=== PATIENT | male | born 1970 | race Caucasian/White ===

== ENCOUNTER 2016-06-03 21:13 | Emergency (ER) | payer MEDICAID | END 2016-06-03 22:33 | disposition home or self-care (01) | DX: S20.212A Contusion of left front wall of thorax, initial encounter (principal); W19.XXXA Unspecified fall, initial encounter; E11.9 Type 2 diabetes mellitus without complications; F17.200 Nicotine dependence, unspecified, uncomplicated; Z79.4 Long term (current) use of insulin ==

== ENCOUNTER 2016-08-06 14:25 | Emergency (ER) | payer MEDICAID ==
[2016-08-06] MEDS ORDERED: LIDOCAINE 1%-EPI 1:100000 20 ML MDV ONE (15:52)
== END 2016-08-06 16:16 | disposition home or self-care (01) ==
DX: L72.3 Sebaceous cyst (principal); E11.9 Type 2 diabetes mellitus without complications; Z79.4 Long term (current) use of insulin; F17.200 Nicotine dependence, unspecified, uncomplicated

== ENCOUNTER 2016-08-10 09:36 | Emergency (ER) | payer MEDICAID | END 2016-08-10 11:44 | disposition home or self-care (01) | DX: N49.2 Inflammatory disorders of scrotum (principal); R03.0 Elevated blood-pressure reading, without diagnosis of hypertension; E11.9 Type 2 diabetes mellitus without complications; Z79.4 Long term (current) use of insulin; F17.200 Nicotine dependence, unspecified, uncomplicated ==

== ENCOUNTER 2016-08-12 16:39 | Emergency (ER) | payer MEDICAID | END 2016-08-12 16:49 | disposition home or self-care (01) | DX: N49.2 Inflammatory disorders of scrotum (principal); F17.200 Nicotine dependence, unspecified, uncomplicated; E11.9 Type 2 diabetes mellitus without complications; Z79.4 Long term (current) use of insulin ==

== ENCOUNTER 2017-03-07 21:45 | Emergency (ER) | payer MEDICAID ==
[2017-03-07 21:57] VITALS: BP 131/91
[2017-03-07] MEDS ORDERED: SODIUM CHLORIDE 0.9% 1,000 ML IV ONE ×2 (22:25→22:59)
[2017-03-07 22:41] LABS: BASOPHILS # (AUTO) 0.1 10^3/uL (0.0-0.1); BASOPHILS % (AUTO) 0.8 %; EOSINOPHILS # (AUTO) 0.1 10^3/uL (0.0-0.7); EOSINOPHILS % (AUTO) 1.5 %; HCT - HEMATOCRIT 39.7 % (42.0-52.0); HGB - HEMOGLOBIN 13.6 g/dL (14.0-18.0); LYMPHOCYTES # (AUTO) 1.6 10^3/uL (1.5-3.5); LYMPHOCYTES % (AUTO) 22.3 %; MEAN CORPUSCULAR HGB CONC 34.3 g/dL (32.0-36.0); MEAN CORPUSCULAR VOLUME 93.4 fL (80.0-94.0); MEAN PLATELET VOLUME 7.4 fL (7.4-11.4); MONOCYTES # (AUTO) 0.7 10^3/uL (0.0-1.0); NEUTROPHILS # (AUTO) 4.9 10^3/uL (1.5-6.6); NEUTROPHILS % (AUTO) 66.4 %; RED BLOOD COUNT 4.26 10^6/uL (4.70-6.10); RED CELL DISTRIBUTION WIDTH 12.1 % (12.0-15.0); UNCORRECTED WHITE BLOOD COUNT 7.4 x10^3/uL; WHITE BLOOD COUNT 7.4 x10^3/uL (4.8-10.8)
[2017-03-07 22:42] LABS: VBG BASE EXCESS 1.5 mmol/L (-2 - +2); VBG OXYGEN SATURATION 93.3 % (60-80); VBG PH 7.417 (7.31-7.41); VBG TOTAL CO2 27.4 mmol/L (24-29)
[2017-03-07 22:56] LABS: ALBUMIN/GLOBULIN RATIO 0.9 (1.0-2.2); BILIRUBIN,TOTAL 0.5 mg/dL (0.2-1.0); BUN - BLOOD UREA NITROGEN 23 mg/dL (6-20); CALCIUM 8.9 mg/dL (8.5-10.3); CARBON DIOXIDE - CO2 24 mmol/L (21-32); CHLORIDE 90 mmol/L (101-111); CREATININE 0.8 mg/dL (0.6-1.2); GFR - MDRD 105 (>89); LIPASE 106 U/L (22-51); POTASSIUM 3.7 mmol/L (3.5-5.0); SODIUM 126 mmol/L (135-145); TOTAL PROTEIN 7.1 g/dL (6.7-8.2)
[2017-03-07 22:57] LABS: GLUCOSE 604 mg/dL (70-100)
[2017-03-07] MEDS ORDERED: INSULIN REGULAR HUMAN 100 UNIT/1 ML 10 ML MDV IVP STA (22:58)
[2017-03-07] MEDS ORDERED: INSULIN REGULAR HUMAN 100 UNIT/1 ML 10 ML MDV ONE (23:12)
[2017-03-07 23:25] LABS: BILIRUBIN,URINE NEGATIVE (NEGATIVE)
[2017-03-07 23:27] LABS: UA CHARGE (STRIP ONLY) YES; UR CULTURE IF IND NOT INDICATED
--- NOTE | 2017-03-07 23:39 | Ultrasound Preliminary Report ---
Exam: US TESTICLE IMPRESSION: 1. No intrascrotal abnormality. 2. Heterogeneous vascular left scrotal wall mass concerning for neoplasm or active inflammation. [facility] SITE ID: [id number]
--- NOTE | 2017-03-07 23:42 | Ultrasound Report ---
EXAM: SCROTAL ULTRASOUND EXAM DATE: 03/07/2017 11:24 PM. CLINICAL HISTORY: Scrotal mass. COMPARISON: None. TECHNIQUE: Real-time scanning was performed with static images obtained. Both color-flow and Doppler spectral analysis were utilized. FINDINGS: Right: Testis: 3.3 x 1.5 x 1.9 cm. Normal size and echotexture. No mass, calcification, or abnormal blood fl ow. Epididymis: 0.8 x 1.1 x 1.3 cm. Normal size and echotexture. No mass or abnormal blood flow. Hydrocele: None. Varicocele: None. Left: Testis: 3.8 x 1.9 x 1.8 cm. Normal size and echotexture. No mass, calcification, or abnormal blood fl ow. Epididymis: 0.5 x 0.7 cm. Normal size and echotexture. No mass or abnormal blood flow. Hydrocele: None. Varicocele: None. Left anterior scrotal wall heterogeneous abnormality with increased vascularity and internal cystic a reas, measuring 4.5 x 1.5 x 2.7 cm overall. IMPRESSION: 1. No intrascrotal abnormality. 2. Heterogeneous vascular left scrotal wall mass concerning for neoplasm or active inflammation. [facility] Referring Provider Line: [phone] SITE ID: [id number]
--- NOTE | 2017-03-07 23:57 | ED Physician Documentation ---
PD HPI SKIN - Stated complaint Stated Complaint: MALE - Chief complaint Chief Complaint: Wound - History obtained from History obtained from: Patient - History of Present Illness Timing - onset: Yesterday Timing - details: Gradual onset, Still present Location: Genitals Quality / character: Painful, Raised, Swelling Similar symptoms before: Work up / diagnostics, Treatment Recently seen: Not recently seen - Additional information Additional information: Patient is a 46 year old male with a history of diabetes and deni scrotal abscesses who is presenting to the emergency department for scrotal swelling. Patient states that he noticed it in the shower over the last couple or days and has become progressively worse. Review of Systems Constitutional: denies: Fever, Chills Eyes: reports: Reviewed and negative Ears: reports: Reviewed and negative Nose: reports: Reviewed and negative Throat: reports: Reviewed and negative Cardiac: denies: Chest pain / pressure Respiratory: reports: Reviewed and negative GI: denies: Abdominal Pain, Nausea, Vomiting : reports: Frequency, Other (scrotal mass). denies: Dysuria Skin: reports: Lesions Musculoskeletal: reports: Reviewed and negative Neurologic: denies: Generalized weakness, Focal weakness, Numbness Endocrine: reports: Polydypsia, Polyuria PD PAST MEDICAL HISTORY - Past Medical History Cardiovascular: None Respiratory: None Neuro: None Endocrine/Autoimmune: Type 2 diabetes GI: Other : None HEENT: Other Psych: None Musculoskeletal: None Derm: None - Past Surgical History Past Surgical History: Yes General: Cholecystectomy - Present Medications Home Medications: Ambulatory Orders Medication Instructions Recorded Confirmed Insulin Glargine [Lantus Solostar] 10 units SUBQ DAILY 06/26/15 03/07/17 Insulin NPH Hum/Reg Insulin Hm 15 unit SUBQ AC 06/26/15 03/07/17 [Novolin 70-30 100 Unit/ml Vial] Cephalexin [Keflex] 500 mg PO Q6H 7 Days capsule 03/07/17 - Allergies Allergies/Adverse Reactions: Allergies Allergy/AdvReac Type Severity Reaction Status Date / Time No Known Drug Allergies Allergy Verified 03/07/17 21:57 - Social History Does the pt smoke?: Yes Smoking Status: Current every day smoker Does the pt drink ETOH?: No Does the pt have substance abuse?: No - Immunizations Immunizations are current?: Yes - POLST Patient has POLST: No PD ED PE NORMAL - Vitals Vital signs reviewed: Yes - General General: Alert and oriented X 3, No acute distress - HEENT HEENT: Atraumatic, PERRL - Neck Neck: Supple, no meningeal sign - Cardiac Cardiac: RRR, No murmur - Respiratory Respiratory: No respiratory distress - Abdomen Abdomen: Soft, Non tender, Non distended - Extremities Extremities: No deformity - Neuro Neuro: Alert and oriented X 3, No motor deficit, No sensory deficit, Normal speech PD ED PE EXPANDED - HEENT HEENT: Dry mucous membranes - Male Male : Skin lesions (lesion consistent with abscess on left scrotum) - Derm Derm: Rash (erythematous indurated lesion approx 2cm by 2cm) Results - Vitals Vitals: Vital Signs - 24 hr 03/07/17 21:55 Temperature 36.2 C L Heart Rate 102 H Respiratory 20 Rate Blood Pressure 131/91 H O2 Saturation 98 Oxygen O2 Source Room air - Labs Labs: Laboratory Tests 03/07/17 03/07/17 03/07/17 22:34 22:34 22:34 WBC 7.4 RBC 4.26 L Hgb 13.6 L Hct 39.7 L MCV 93.4 MCH 32.0 H MCHC 34.3 RDW 12.1 Plt Count 150 MPV 7.4 Neut # 4.9 Lymph # 1.6 [place] # 0.7 Eos # 0.1 Baso # 0.1 Absolute Nucleated RBC 0.00 Nucleated RBC % 0.0 VBG pH VBG pCO2 VBG pO2 VBG HCO3 VBG Total CO2 VBG O2 Saturation VBG Base Excess Sodium 126 L Potassium 3.7 Chloride 90 L Carbon Dioxide 24 Anion Gap 12.0 BUN 23 H Creatinine 0.8 Estimated GFR (MDRD) 105 Glucose 604 H* POC Whole Bld Glucose Lactic Acid 0.9 Calcium 8.9 Total Bilirubin 0.5 AST 20 ALT 37 Alkaline Phosphatase 93 Total Protein 7.1 Albumin 3.4 Globulin 3.7 Albumin/Globulin Ratio 0.9 L Lipase 106 H Urine Color Urine Clarity Urine pH Ur Specific [place] Urine Protein Urine Glucose (UA) Urine Ketones Urine Occult Blood Urine Nitrite Urine Bilirubin Urine Urobilinogen Ur Leukocyte Esterase Ur Microscopic Review Urine Culture Comments Serum Ketones NEGATIVE 03/07/17 03/07/17 03/07/17 22:34 23:15 23:54 WBC RBC Hgb Hct MCV MCH MCHC RDW Plt Count MPV Neut # Lymph # [place] # Eos # Baso # Absolute Nucleated RBC Nucleated RBC % VBG pH 7.417 H VBG pCO2 41.5 VBG pO2 62.2 H VBG HCO3 26.1 VBG Total CO2 27.4 VBG O2 Saturation 93.3 H VBG Base Excess 1.5 Sodium Potassium Chloride Carbon Dioxide Anion Gap BUN Creatinine Estimated GFR (MDRD) Glucose POC Whole Bld Glucose 540 H* Lactic Acid Calcium Total Bilirubin AST ALT Alkaline Phosphatase Total Protein Albumin Globulin Albumin/Globulin Ratio Lipase Urine Color YELLOW Urine Clarity CLEAR Urine pH 6.0 Ur Specific [place] <=1.005 Urine Protein NEGATIVE Urine Glucose (UA) >=1000 H Urine Ketones NEGATIVE Urine Occult Blood NEGATIVE Urine Nitrite NEGATIVE Urine Bilirubin NEGATIVE Urine Urobilinogen 0.2 (NORMAL) Ur Leukocyte Esterase NEGATIVE Ur Microscopic Review NOT INDICATED Urine Culture Comments NOT INDICATED Serum Ketones PD MEDICAL DECISION MAKING - ED course Complexity details: reviewed old records, reviewed results, re-evaluated patient , considered differential, d/w patient ED course: Patient was seen and examined at bedside. fingerstick was performed and was found to be "high". IV access was gained and labs were drawn. Patient was started on a fluid bolus. ultrasound was ordered. Patient was treated with insulin IV. Patient's labs showed no signs of dka, but blood glucose was still very elevated. Patient stated that he drank a monster and ate some junk food before coming in. He stated he would eat something and take his insulin at home but he wanted to leave. patient was made aware of the risks of leaving. Patient stated ht understood and he signed out against medical advice. Departure - Departure Disposition: 07 Against Medical Advice Clinical Impression: Scrotal abscess, Uncontrolled diabetes mellitus Condition: Stable Instructions: ED Staph Infec Abx Tx Only Follow-Up: primary,care provider [Other] Prescriptions: Cephalexin [Keflex] 500 mg PO Q6H 7 Days capsule Comments: Your symptoms today are being caused by a scrotal abscess. You will need to apply warm compresses and start antibiotics. I understand you need to get home today, but your blood sugars are very out of control. You should follow up with your pmd or return to the emergency department if there is no improvement with your symptoms. Discharge Date/Time: 03/08/17 00:07
== END 2017-03-08 00:07 | disposition left against medical advice (07) ==
LOC: ED 21:45
DX: N49.2 Inflammatory disorders of scrotum (principal); E11.9 Type 2 diabetes mellitus without complications; Z79.4 Long term (current) use of insulin; F17.200 Nicotine dependence, unspecified, uncomplicated
CPT/HCPCS: 36415; 76870; 80053; 81003; 82009; 82803; 83605; 83690; 85025; 96360; 99283; 99284; J1815; 81001; 87086

== ENCOUNTER 2017-09-06 08:00 | Outpatient (CLI) | payer MEDICAID ==
[2017-09-06 13:32] LABS: BASOPHILS # (AUTO) 0.1 10^3/uL (0.0-0.1); BASOPHILS % (AUTO) 0.8 %; EOSINOPHILS # (AUTO) 0.3 10^3/uL (0.0-0.7); EOSINOPHILS % (AUTO) 4.4 %; HGB - HEMOGLOBIN 13.1 g/dL (14.0-18.0); LYMPHOCYTES # (AUTO) 1.7 10^3/uL (1.5-3.5); LYMPHOCYTES % (AUTO) 27.8 %; MEAN CORPUSCULAR HEMOGLOBIN 32.3 pg (27.0-31.0); MEAN CORPUSCULAR HGB CONC 34.5 g/dL (32.0-36.0); MEAN CORPUSCULAR VOLUME 93.5 fL (80.0-94.0); MEAN PLATELET VOLUME 7.1 fL (7.4-11.4); MONOCYTES # (AUTO) 0.5 10^3/uL (0.0-1.0); MONOCYTES % (AUTO) 8.3 %; NEUTROPHILS # (AUTO) 3.7 10^3/uL (1.5-6.6); NEUTROPHILS % (AUTO) 58.7 %; PLT - PLATELET COUNT 169 10^3/uL (130-450); RED BLOOD COUNT 4.07 10^6/uL (4.70-6.10); RED CELL DISTRIBUTION WIDTH 12.8 % (12.0-15.0); WHITE BLOOD COUNT 6.3 x10^3/uL (4.8-10.8)
[2017-09-06 13:58] LABS: ALBUMIN 3.5 g/dL (3.2-5.5); ALBUMIN/GLOBULIN RATIO 0.8 (1.0-2.2); ALKALINE PHOSPHATASE 85 IU/L (42-121); ALT ALANINE AMINOTRANSFERASE 50 IU/L (10-60); AST ASPARTATE AMINOTRANSFERASE 25 IU/L (10-42); BILIRUBIN,TOTAL 0.6 mg/dL (0.2-1.0); BUN - BLOOD UREA NITROGEN 29 mg/dL (6-20); CARBON DIOXIDE - CO2 25 mmol/L (21-32); CHLORIDE 95 mmol/L (101-111); CHOLESTEROL 236 mg/dL; CREATININE 0.7 mg/dL (0.6-1.2); GFR - MDRD 122 (>89); GLUCOSE 350 mg/dL (70-100); HDL CHOLESTEROL 79 mg/dL; LDL CHOLESTEROL,CALCULATED 145 mg/dL; LDL/HDL RATIO 1.8 (<3.6); SODIUM 129 mmol/L (135-145); TOTAL PROTEIN 7.9 g/dL (6.7-8.2); VLDL CHOLESTEROL 12 mg/dL
[2017-09-06 13:59] LABS: HB2 TOTAL 14.6 g/dL; HEMOGLOBIN A1C 2.1 g/dL; HEMOGLOBIN A1C % 15.3 % (4.6-6.2)
== END 2017-09-06 08:01 ==
LOC: LAB.N 08:00
PROVIDERS: ATTEND Physician Assistant Medical
DX: Z00.00 Encounter for general adult medical examination without abnormal findings (principal); F17.200 Nicotine dependence, unspecified, uncomplicated; Z86.718 Personal history of other venous thrombosis and embolism; E11.65 Type 2 diabetes mellitus with hyperglycemia
CPT/HCPCS: 36415; 80053; 80061; 82043; 83036; 83721; 84443; 85025

== ENCOUNTER 2017-11-14 16:48 | Emergency (ER) | payer MEDICAID ==
[2017-11-14] MEDS ORDERED: SODIUM CHLORIDE 0.9% 1,000 ML IV ONE ×2 (17:22→17:23)
[2017-11-14 17:44] LABS: BASOPHILS % (AUTO) 0.4 %; EOSINOPHILS % (AUTO) 0.5 %; HGB - HEMOGLOBIN 12.8 g/dL (14.0-18.0); LYMPHOCYTES # (AUTO) 0.8 10^3/uL (1.5-3.5); LYMPHOCYTES % (AUTO) 9.3 %; MEAN CORPUSCULAR HEMOGLOBIN 32.2 pg (27.0-31.0); MEAN CORPUSCULAR HGB CONC 34.6 g/dL (32.0-36.0); MEAN PLATELET VOLUME 6.8 fL (7.4-11.4); MONOCYTES # (AUTO) 0.7 10^3/uL (0.0-1.0); MONOCYTES % (AUTO) 7.9 %; NEUTROPHILS # (AUTO) 7.4 10^3/uL (1.5-6.6); NEUTROPHILS % (AUTO) 81.9 %; PLT - PLATELET COUNT 157 10^3/uL (130-450); RED BLOOD COUNT 3.97 10^6/uL (4.70-6.10); RED CELL DISTRIBUTION WIDTH 12.7 % (12.0-15.0)
--- NOTE | 2017-11-14 17:45 | ED Physician Documentation ---
History of Present Illness - Stated complaint Stated Complaint: MASS ON NECK/HD PX - Chief complaint Chief Complaint: General - History obtained from History obtained from: Patient - History of Present Illness Timing: Other (46-year-old type II diabetic whose had a painful lesion on the left side of the neck for last 4 days it started out like a pimple but has gotten larger. He denies any fevers or chills.) Pain level max: 6 Review of Systems Ten Systems: 10 systems reviewed and negative Constitutional: denies: Fever, Chills Cardiac: denies: Chest pain / pressure, Palpitations Respiratory: denies: Dyspnea, Cough PD PAST MEDICAL HISTORY - Past Medical History Cardiovascular: None Respiratory: None Endocrine/Autoimmune: Type 2 diabetes GI: Other : None HEENT: Other Psych: None Musculoskeletal: None Derm: None - Past Surgical History Past Surgical History: Yes General: Cholecystectomy - Present Medications Home Medications: Ambulatory Orders Medication Instructions Recorded Confirmed Insulin Glargine [Lantus Solostar] 10 units SUBQ DAILY 06/26/15 03/07/17 Insulin NPH Hum/Reg Insulin Hm 15 unit SUBQ AC 06/26/15 03/07/17 [Novolin 70-30 100 Unit/ml Vial] Cephalexin [Keflex] 500 mg PO QID #40 capsule 11/14/17 Oxycodone HCl/Acetaminophen 1 - 2 tab PO Q4H PRN #10 tablet 11/14/17 [Percocet 5-325 mg Tablet] Sulfamethoxazole/Trimethoprim 1 each PO BID 10 Days tablet 11/14/17 [Sulfamethoxazole-Tmp Ds Tablet] metFORMIN [Glucophage] 1,000 mg PO BID 11/14/17 11/14/17 - Allergies Allergies/Adverse Reactions: Allergies Allergy/AdvReac Type Severity Reaction Status Date / Time No Known Drug Allergies Allergy Verified 11/14/17 17:00 - Social History Does the pt smoke?: Yes Smoking Status: Current every day smoker Does the pt drink ETOH?: No Does the pt have substance abuse?: No - Family History Family history: reports: Non contributory - Immunizations Immunizations are current?: Yes - POLST Patient has POLST: No PD ED PE NORMAL - Vitals Vital signs reviewed: Yes - General General: Alert and oriented X 3, No acute distress - HEENT HEENT: PERRL, EOMI - Neck Neck: Supple, no meningeal sign, No bony TTP - Cardiac Cardiac: RRR, No murmur - Respiratory Respiratory: No respiratory distress, Clear bilaterally - Abdomen Abdomen: Non tender - Derm Derm: Other (There is a broad shallow abscess with overlying eschar that is about nickel sized to the left mid posterior neck.) - Neuro Neuro: Alert and oriented X 3, Normal speech - Psych Psych: Normal mood, Normal affect Results - Vitals Vitals: Vital Signs - 24 hr 11/14/17 11/14/17 16:56 17:30 Temperature 36.6 C Heart Rate 126 H 117 H Respiratory 16 Rate Blood Pressure 96/62 111/76 O2 Saturation 98 100 Oxygen O2 Source Room air - Labs Labs: Microbiology 11/14/17 17:50 Wound Culture - Preliminary Abscess Laboratory Tests 11/14/17 11/14/17 11/14/17 17:35 17:35 17:35 WBC 9.0 RBC 3.97 L Hgb 12.8 L Hct 36.9 L MCV 93.0 MCH 32.2 H MCHC 34.6 RDW 12.7 Plt Count 157 MPV 6.8 L Neut # (Auto) 7.4 H Lymph # (Auto) 0.8 L [place] # (Auto) 0.7 Eos # (Auto) 0.0 Baso # (Auto) 0.0 Absolute Nucleated RBC 0.01 Nucleated RBC % 0.1 Sodium 134 L Potassium 3.5 Chloride 96 L Carbon Dioxide 27 Anion Gap 11.0 BUN 17 Creatinine 0.8 Estimated GFR (MDRD) 105 Glucose 294 H Lactic Acid 2.4 H Calcium 9.5 Total Bilirubin 0.7 AST 21 ALT 20 Alkaline Phosphatase 82 Total Protein 7.6 Albumin 3.2 Globulin 4.4 H Albumin/Globulin Ratio 0.7 L Lipase 26 Procedures - Abscess I&D (location) L neck Preparation: Alcohol, Lidocaine 1%, With epi Incision: Incised with scalpel, Purulent drainage, Loculations broken, Culture obtained. No: Packed (too small) Other: Pt tolerated well, Dressing applied PD MEDICAL DECISION MAKING - ED course ED course: 46-year-old gentleman with diabetes presents with an abscess on the left side of the neck which was incised and drained. His labs are reassuring and he is placed on Keflex and Bactrim. - Sepsis Event Vital Signs: Vital Signs - 24 hr 11/14/17 11/14/17 16:56 17:30 Temperature 36.6 C Heart Rate 126 H 117 H Respiratory 16 Rate Blood Pressure 96/62 111/76 O2 Saturation 98 100 Oxygen O2 Source Room air Departure - Departure Disposition: Home, Self Care Clinical Impression: Neck abscess Condition: Good Record reviewed to determine appropriate education?: Yes Instructions: ED Abscess IandD Prescriptions: Cephalexin [Keflex] 500 mg PO QID #40 capsule Oxycodone HCl/Acetaminophen [Percocet 5-325 mg Tablet] 1 - 2 tab PO Q4H PRN #10 tablet PRN Reason: Pain Sulfamethoxazole/Trimethoprim [Sulfamethoxazole-Tmp Ds Tablet] 1 each PO BID 10 Days tablet Comments: We are performing a wound culture, the results should be done in 48-72 hours. If antibiotic change is necessary we will call you. Return if worse in the meantime, especially if you develop increased pain, fevers, cannot keep down the medication. Otherwise follow-up with your physician in approximately 2-3 days.
[2017-11-14 18:00] LABS: ALBUMIN 3.2 g/dL (3.2-5.5); ALBUMIN/GLOBULIN RATIO 0.7 (1.0-2.2); BILIRUBIN,TOTAL 0.7 mg/dL (0.2-1.0); CALCIUM 9.5 mg/dL (8.5-10.3); CREATININE 0.8 mg/dL (0.6-1.2); TOTAL PROTEIN 7.6 g/dL (6.7-8.2)
[2017-11-14] MEDS ORDERED: cephALEXin 250 MG CAPSULE PO STA (18:33)
[2017-11-14] MEDS ORDERED: SULFAMETH/TRIMETH DS 800/160 MG TABLET PO STA (18:33)
[2017-11-14] MEDS ORDERED: oxyCODONE/ACET 5/325 Prepack 4 PO STA (18:36)
[2017-11-14 18:49] VITALS: BP 142/100
== END 2017-11-14 18:50 | disposition home or self-care (01) ==
LOC: ED 16:48
DX: L02.11 Cutaneous abscess of neck (principal); E11.9 Type 2 diabetes mellitus without complications; Z79.4 Long term (current) use of insulin; F17.200 Nicotine dependence, unspecified, uncomplicated
CPT/HCPCS: 10060; 36415; 80053; 83605; 83690; 85025; 87070; 87181; 87205; 99283; A9270

== ENCOUNTER 2017-12-15 17:20 | Outpatient (CLI) | payer MEDICAID | END 2017-12-15 17:21 | disposition critical access hospital (66) | LOC: EMS 17:20 | PROVIDERS: ATTEND Surgery | DX: R41.82 Altered mental status, unspecified (principal); R53.83 Other fatigue; R73.09 Other abnormal glucose | CPT/HCPCS: A0425; A0427; A0999 ==

== ENCOUNTER 2017-12-15 17:53 | Emergency (ER) | payer MEDICAID ==
[2017-12-15 18:34] LABS: BASOPHILS # (AUTO) 0.1 10^3/uL (0.0-0.1); BASOPHILS % (AUTO) 1.5 %; EOSINOPHILS # (AUTO) 0.1 10^3/uL (0.0-0.7); EOSINOPHILS % (AUTO) 1.3 %; LYMPHOCYTES # (AUTO) 1.4 10^3/uL (1.5-3.5); LYMPHOCYTES % (AUTO) 29.4 %; MEAN CORPUSCULAR HEMOGLOBIN 32.2 pg (27.0-31.0); MEAN CORPUSCULAR HGB CONC 34.9 g/dL (32.0-36.0); MEAN CORPUSCULAR VOLUME 92.3 fL (80.0-94.0); MEAN PLATELET VOLUME 6.9 fL (7.4-11.4); MONOCYTES # (AUTO) 0.4 10^3/uL (0.0-1.0); MONOCYTES % (AUTO) 8.4 %; NEUTROPHILS # (AUTO) 2.8 10^3/uL (1.5-6.6); NEUTROPHILS % (AUTO) 59.4 %; PLT - PLATELET COUNT 141 10^3/uL (130-450); RED BLOOD COUNT 4.02 10^6/uL (4.70-6.10); RED CELL DISTRIBUTION WIDTH 12.9 % (12.0-15.0); WHITE BLOOD COUNT 4.7 x10^3/uL (4.8-10.8)
[2017-12-15 18:35] LABS: VBG BASE EXCESS 2.7 mmol/L (-2 - +2); VBG PCO2 50.2 mmHg (41-51); VBG PH 7.376 (7.31-7.41); VBG PO2 30.9 mmHg (25-47); VBG TOTAL CO2 30.3 mmol/L (24-29)
[2017-12-15 18:38] LABS: BUN - BLOOD UREA NITROGEN 22 mg/dL (6-20); CARBON DIOXIDE - CO2 27 mmol/L (21-32); CHLORIDE 98 mmol/L (101-111); CREATININE 0.6 mg/dL (0.6-1.2); GFR - MDRD 146 (>89); GLUCOSE 338 mg/dL (70-100); SODIUM 134 mmol/L (135-145)
[2017-12-15 18:42] LABS: KETONES, SERUM (ACETEST) SMALL (NEGATIVE)
[2017-12-15] MEDS ORDERED: SODIUM CHLORIDE 0.9% 1,000 ML IV ONE ×2 (19:50→20:25)
[2017-12-15] MEDS ORDERED: INSULIN REGULAR HUMAN 100 UNIT/1 ML 10 ML MDV IVP STA (19:50)
--- NOTE | 2017-12-15 20:43 | ED Physician Documentation ---
PD HPI NVD - Stated complaint Stated Complaint: HIGH BLOOD SUGAR - Chief complaint Chief Complaint: Abd Pain - History obtained from History obtained from: Patient, EMS - History of Present Illness Timing - onset: How many days ago (2-3 days he did not feel like taking his insulin nor check sugars. Feeling weak and nauseated today. Called EMS.) Timing - duration: Days Timing - details: Gradual onset, Still present Associated symptoms: Loss of appetite. No: Fever, Abdominal pain, Near syncope / syncope Contributing factors: Diabetes. No: Sick contact, Bad food Worsened by: Eating Similar symptoms before: Diagnosis (diabetes, ketosis) Recently seen: Not recently seen Review of Systems Constitutional: denies: Fever, Chills, Myalgias Nose: denies: Rhinorrhea / runny nose, Congestion Throat: denies: Sore throat Cardiac: denies: Chest pain / pressure Respiratory: denies: Cough GI: reports: Nausea, Vomiting. denies: Abdominal Pain, Diarrhea : reports: Frequency. denies: Dysuria Neurologic: reports: Generalized weakness. denies: Focal weakness, Numbness PD PAST MEDICAL HISTORY - Past Medical History Past Medical History: Yes Cardiovascular: None Respiratory: None Endocrine/Autoimmune: Type 2 diabetes GI: Other : None HEENT: Other Psych: None Musculoskeletal: None Derm: None - Past Surgical History Past Surgical History: Yes General: Cholecystectomy - Present Medications Home Medications: Ambulatory Orders Medication Instructions Recorded Confirmed Insulin Glargine [Lantus Solostar] 10 units SUBQ DAILY 06/26/15 03/07/17 Insulin NPH Hum/Reg Insulin Hm 15 unit SUBQ AC 06/26/15 03/07/17 [Novolin 70-30 100 Unit/ml Vial] Cephalexin [Keflex] 500 mg PO QID #40 capsule 11/14/17 Oxycodone HCl/Acetaminophen 1 - 2 tab PO Q4H PRN #10 tablet 11/14/17 [Percocet 5-325 mg Tablet] Sulfamethoxazole/Trimethoprim 1 each PO BID 10 Days tablet 11/14/17 [Sulfamethoxazole-Tmp Ds Tablet] metFORMIN [Glucophage] 1,000 mg PO BID 11/14/17 11/14/17 - Allergies Allergies/Adverse Reactions: Allergies Allergy/AdvReac Type Severity Reaction Status Date / Time No Known Drug Allergies Allergy Verified 12/15/17 18:12 - Social History Does the pt smoke?: Yes Smoking Status: Current every day smoker Does the pt drink ETOH?: No Does the pt have substance abuse?: No - Immunizations Immunizations are current?: Yes - POLST Patient has POLST: No PD ED PE NORMAL - Vitals Vital signs reviewed: Yes - General General: Alert and oriented X 3, No acute distress, Well developed/nourished - HEENT HEENT: Pharynx benign. No: Moist mucous membranes - Neck Neck: Supple, no meningeal sign, No adenopathy - Cardiac Cardiac: RRR, No murmur - Respiratory Respiratory: Clear bilaterally - Abdomen Abdomen: Normal bowel sounds, Soft, Non tender, Non distended - Back Back: No CVA TTP - Derm Derm: Normal color, Warm and dry - Extremities Extremities: No deformity, No tenderness to palpate, Normal ROM s pain, No edema , No calf tenderness / cord - Neuro Neuro: Alert and oriented X 3, No motor deficit, Normal speech Eye Opening: Spontaneous Motor: Obeys Commands Verbal: Oriented GCS Score: 15 Results - Vitals Vitals: Oxygen O2 Source Room air - Labs Labs: Laboratory Tests 12/15/17 12/15/17 12/15/17 18:27 18:27 18:27 WBC 4.7 L RBC 4.02 L Hgb 13.0 L Hct 37.1 L MCV 92.3 MCH 32.2 H MCHC 34.9 RDW 12.9 Plt Count 141 MPV 6.9 L Neut # (Auto) 2.8 Lymph # (Auto) 1.4 L [place] # (Auto) 0.4 Eos # (Auto) 0.1 Baso # (Auto) 0.1 Absolute Nucleated RBC 0.00 Nucleated RBC % 0.0 VBG pH 7.376 VBG pCO2 50.2 VBG pO2 30.9 VBG HCO3 28.8 H VBG Total CO2 30.3 H VBG O2 Saturation 61.3 VBG Base Excess 2.7 H Sodium 134 L Potassium 3.8 Chloride 98 L Carbon Dioxide 27 Anion Gap 9.0 BUN 22 H Creatinine 0.6 Estimated GFR (MDRD) 146 Glucose 338 H Calcium 9.0 Serum Ketones SMALL H PD MEDICAL DECISION MAKING - ED course Complexity details: reviewed results, re-evaluated patient (he is feeling better with IV fluids and meds. Taking water and eating well. He feels wanting to go home. Ride is here. He says he will take his normal meds. 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 Resume your usual insulin doses that you should be taking. Recheck if not improved over the next few days. Discharge Date/Time: 12/15/17 20:52
[2017-12-15 20:52] VITALS: BP 117/67
== END 2017-12-15 20:52 | disposition home or self-care (01) ==
LOC: EDUNIT# → ED 17:53
DX: E11.10 Type 2 diabetes mellitus with ketoacidosis without coma (principal); E11.65 Type 2 diabetes mellitus with hyperglycemia; F17.200 Nicotine dependence, unspecified, uncomplicated; Z79.4 Long term (current) use of insulin
CPT/HCPCS: 36415; 80048; 82009; 82803; 85025; 96360; 99283; J1815

== ENCOUNTER 2018-01-09 08:44 | Emergency (ER) | payer MEDICAID ==
--- NOTE | 2018-01-09 09:05 | ED Physician Documentation ---
History of Present Illness - Stated complaint Stated Complaint: NAUESEA/HEADACHE - Chief complaint Chief Complaint: Abd Pain - Additonal information Additional information: hx from pt 47 male poorly controlled DM - runs 600 blood sugars sounds like he has diabetic neuropathy - saays he has had hand and foot numbness for years better control recently - blood suagrs in 200s but this am was > 400 took his usual dose of meds then his blood sugar dropped to 70 and he feels terrible with a THOMAS [place] no fever no cough no neck pain no diarrhea no travel no bad food no sick contacts Review of Systems Constitutional: denies: Fever, Chills Throat: denies: Sore throat Cardiac: denies: Chest pain / pressure Respiratory: denies: Dyspnea GI: reports: Nausea, Vomiting. denies: Abdominal Pain Neurologic: reports: Numbness (hands and feet), Headache Immunocompromised: denies: Immunocompromised PD PAST MEDICAL HISTORY - Past Medical History Cardiovascular: None Respiratory: None Endocrine/Autoimmune: Type 2 diabetes GI: Other : None HEENT: Other Psych: None Musculoskeletal: None Derm: None - Past Surgical History Past Surgical History: Yes General: Cholecystectomy - Present Medications Home Medications: Ambulatory Orders Medication Instructions Recorded Confirmed Insulin Glargine [Lantus Solostar] 10 units SUBQ DAILY 06/26/15 03/07/17 Insulin NPH Hum/Reg Insulin Hm 15 unit SUBQ AC 06/26/15 03/07/17 [Novolin 70-30 100 Unit/ml Vial] Oxycodone HCl/Acetaminophen 1 - 2 tab PO Q4H PRN #10 tablet 11/14/17 [Percocet 5-325 mg Tablet] - Allergies Allergies/Adverse Reactions: Allergies Allergy/AdvReac Type Severity Reaction Status Date / Time No Known Drug Allergies Allergy Verified 01/09/18 08:51 - Social History Does the pt smoke?: Yes Smoking Status: Current every day smoker Does the pt drink ETOH?: No Does the pt have substance abuse?: No - Immunizations Immunizations are current?: Yes - POLST Patient has POLST: No PD ED PE NORMAL - Vitals Vital signs reviewed: Yes - General General: Alert and oriented X 3, Other (thin ill kept retching) - HEENT HEENT: PERRL - Neck Neck: Supple, no meningeal sign - Cardiac Cardiac: RRR - Respiratory Respiratory: No respiratory distress, Clear bilaterally - Abdomen Abdomen: Soft, Non tender - Derm Derm: Normal color - Extremities Extremities: No deformity - Neuro Neuro: Alert and oriented X 3 Eye Opening: Spontaneous Motor: Obeys Commands Verbal: Oriented GCS Score: 15 Results - Vitals Vitals: Vital Signs - 24 hr 01/09/18 01/09/18 08:49 10:59 Temperature 36 C L 37 C Heart Rate 105 H 103 H Respiratory 24 20 Rate Blood Pressure 125/90 H 123/92 H O2 Saturation 100 98 Oxygen O2 Source Room air - EKG (time done) 0939 Rate: Rate (enter#) Rhythm: NSR Crane: Normal Ischemia: Non specific changes - Labs Labs: Laboratory Tests 01/09/18 01/09/18 01/09/18 08:50 08:50 08:50 WBC 9.3 RBC 4.04 L Hgb 12.9 L Hct 37.0 L MCV 91.6 MCH 32.0 H MCHC 34.9 RDW 13.2 Plt Count 284 MPV 6.6 L Neut # (Auto) 5.4 Lymph # (Auto) 2.8 [place] # (Auto) 0.8 Eos # (Auto) 0.2 Baso # (Auto) 0.1 Absolute Nucleated RBC 0.00 Nucleated RBC % 0.0 Sodium 139 Potassium 2.8 L Chloride 97 L Carbon Dioxide 30 Anion Gap 12.0 BUN 18 Creatinine 0.9 Estimated GFR (MDRD) 91 Glucose 80 POC Whole Bld Glucose Calcium 10.4 H Total Bilirubin 0.3 AST 22 ALT 29 Alkaline Phosphatase 100 Troponin I < 0.04 Total Protein 8.0 Albumin 3.8 Globulin 4.2 Albumin/Globulin Ratio 0.9 L Lipase 34 Urine Color Urine Clarity Urine pH Ur Specific [place] Urine Protein Urine Glucose (UA) Urine Ketones Urine Occult Blood Urine Nitrite Urine Bilirubin Urine Urobilinogen Ur Leukocyte Esterase Ur Microscopic Review Urine Culture Comments 01/09/18 01/09/18 01/09/18 08:53 10:59 11:23 WBC RBC Hgb Hct MCV MCH MCHC RDW Plt Count MPV Neut # (Auto) Lymph # (Auto) [place] # (Auto) Eos # (Auto) Baso # (Auto) Absolute Nucleated RBC Nucleated RBC % Sodium Potassium Chloride Carbon Dioxide Anion Gap BUN Creatinine Estimated GFR (MDRD) Glucose POC Whole Bld Glucose 71 121 H Calcium Total Bilirubin AST ALT Alkaline Phosphatase Troponin I Total Protein Albumin Globulin Albumin/Globulin Ratio Lipase Urine Color YELLOW Urine Clarity CLEAR Urine pH 7.5 Ur Specific [place] 1.015 Urine Protein NEGATIVE Urine Glucose (UA) >=1000 H Urine Ketones NEGATIVE Urine Occult Blood NEGATIVE Urine Nitrite NEGATIVE Urine Bilirubin NEGATIVE Urine Urobilinogen 0.2 (NORMAL) Ur Leukocyte Esterase NEGATIVE Ur Microscopic Review NOT INDICATED Urine Culture Comments NOT INDICATED PD MEDICAL DECISION MAKING - ED course ED course: 47 male with poorly controlled DM and likely neuropathy 2/2 same to ED with very high then very low blood sugar and associated THOMAS no trauma no fever or neck stiffness to suggest meningitis baseline neuro exam (hand and feet paresthesias X several years) slightly elevated HR noted but no infectious cause for abn blood sugars found on exam and work up labs OK except K which was repleted and Ca which is an outpt work up blood sugars stabilized and pt eating now feels better, THOMAS subsides will dc home - Sepsis Event Vital Signs: Vital Signs - 24 hr 01/09/18 01/09/18 08:49 10:59 Temperature 36 C L 37 C Heart Rate 105 H 103 H Respiratory 24 20 Rate Blood Pressure 125/90 H 123/92 H O2 Saturation 100 98 Oxygen O2 Source Room air Departure - Departure Disposition: 01 Home, Self Care Clinical Impression: Hypoglycemia, Paresthesia, Hypokalemia, Hypercalcemia Headache Qualifiers: Headache type: unspecified Headache chronicity pattern: acute headache Intractability: not intractable Qualified Code(s): R51 - Headache Condition: Good Instructions: Hypoglycemia, ED Cephalgia Unspecified, ED Potassium Deficiency Follow-Up: Ollie Cerna PA-C [Primary Care Provider] - Comments: The CT scan of your head was fine - no bleeding tumors or swelling Your exam does not suggest a brain infection or any other infection such as pneumonia, or a urine or skin infection Your blood sugar was high, then low and now is stable Your labs were fine except for low potassium which was replaced and high calcium which you should follow up with your PMD about I think the chronic numbness and tingling in your hands and feet may be due to neuropathy from poorly controlled diabetes - please follow up with your PMD and perhaps get aa neurology evaluation. Take your medications as prescribed Monitor your blood sugars extra carefully Return if worse Forms: Activity restrictions Discharge Date/Time: 01/09/18 12:02
[2018-01-09] MEDS ORDERED: ONDANSETRON 4 MG/2 ML VIAL IVP STA (09:13)
[2018-01-09] MEDS ORDERED: DEXTROSE 5%-0.45% NACL 1,000 ML IV ONE (09:13)
[2018-01-09] MEDS ORDERED: ACETAMINOPHEN 1,000 MG/100 ML 100 ML IV STA (09:13)
[2018-01-09 09:19] LABS: BASOPHILS # (AUTO) 0.1 10^3/uL (0.0-0.1); BASOPHILS % (AUTO) 0.8 %; EOSINOPHILS # (AUTO) 0.2 10^3/uL (0.0-0.7); EOSINOPHILS % (AUTO) 2.3 %; HGB - HEMOGLOBIN 12.9 g/dL (14.0-18.0); LYMPHOCYTES # (AUTO) 2.8 10^3/uL (1.5-3.5); LYMPHOCYTES % (AUTO) 30.1 %; MEAN CORPUSCULAR HGB CONC 34.9 g/dL (32.0-36.0); MEAN CORPUSCULAR VOLUME 91.6 fL (80.0-94.0); MEAN PLATELET VOLUME 6.6 fL (7.4-11.4); MONOCYTES # (AUTO) 0.8 10^3/uL (0.0-1.0); NEUTROPHILS # (AUTO) 5.4 10^3/uL (1.5-6.6); NEUTROPHILS % (AUTO) 57.8 %; PLT - PLATELET COUNT 284 10^3/uL (130-450); RED BLOOD COUNT 4.04 10^6/uL (4.70-6.10); RED CELL DISTRIBUTION WIDTH 13.2 % (12.0-15.0); WHITE BLOOD COUNT 9.3 x10^3/uL (4.8-10.8)
[2018-01-09 09:29] LABS: ALBUMIN 3.8 g/dL (3.2-5.5); ALBUMIN/GLOBULIN RATIO 0.9 (1.0-2.2); BILIRUBIN,TOTAL 0.3 mg/dL (0.2-1.0); CALCIUM 10.4 mg/dL (8.5-10.3); CREATININE 0.9 mg/dL (0.6-1.2)
[2018-01-09] MEDS ORDERED: MORPHINE 2 MG/ML CARPUJECT IVP STA (10:32)
[2018-01-09 11:00] VITALS: BP 123/92
[2018-01-09 11:02] LABS: BILIRUBIN,URINE NEGATIVE (NEGATIVE); CLARITY,URINE CLEAR (CLEAR); GLUCOSE, URINE (UA) >=1000 mg/dL (NEGATIVE); KETONES,URINE (UA) NEGATIVE (NEGATIVE); LEUKOCYTE ESTERASE, URINE NEGATIVE (NEGATIVE); NITRITE,URINE NEGATIVE (NEGATIVE); OCCULT BLOOD,URINE NEGATIVE (NEGATIVE); PH,URINE 7.5 PH (5.0-7.5); PROTEIN,URINE NEGATIVE (NEGATIVE); UROBILINOGEN,URINE 0.2 (NORMAL) E.U./dL (NORMAL)
--- NOTE | 2018-01-09 11:06 | CT Report ---
Reason: severe headache Procedure Date: 01/09/2018 Accession Number: [id number] / [id number] Procedure: CT - Head W/O CPT Code: FULL RESULT: EXAM: CT HEAD EXAM DATE: 01/09/2018 10:47 AM. CLINICAL HISTORY: Severe headache. COMPARISON: None. TECHNIQUE: Multiaxial CT images were obtained from the foramen magnum to the vertex. Reformats: Sagittal and coronal. IV contrast: None. In accordance with CT protocol optimization, one or more of the following dose reduction techniques were utilized for this exam: automated exposure control, adjustment of mA and/or KV based on patient size, or use of iterative reconstructive technique. FINDINGS: Parenchyma: No intraparenchymal hemorrhage. No evidence of mass, midline shift, or CT findings of infarction. Hidalgo-white differentiation is distinct. Extraaxial Spaces: Normal for age. No subdural or epidural collections identified. Ventricles: Normal in size and position. Sinuses and Orbits: Imaged paranasal sinuses, orbits, and mastoids show no significant abnormality. Bones: No evidence of fracture or calvarial defect. Other: None. IMPRESSION: Normal head CT. RADIA
[2018-01-09] MEDS ORDERED: POTASSIUM CHLORIDE 20 MEQ TABLET PO STA (11:34)
== END 2018-01-09 12:02 | disposition home or self-care (01) ==
LOC: ED 08:44
DX: E11.649 Type 2 diabetes mellitus with hypoglycemia without coma (principal); R20.0 Anesthesia of skin; E87.6 Hypokalemia; E83.52 Hypercalcemia; R51 Headache; R94.31 Abnormal electrocardiogram [ECG] [EKG]; Z79.4 Long term (current) use of insulin
CPT/HCPCS: 36415; 70450; 80053; 81003; 83690; 84484; 85025; 93005; 96365; 96375; 99283; 99284; A9270; J0131; 81001; 87086

== ENCOUNTER 2018-06-02 06:49 | Emergency (ER) | payer MEDICAID ==
[2018-06-02] MEDS ORDERED: DOXYCYCLINE 100 MG TABLET PO STA (07:18)
--- NOTE | 2018-06-02 07:20 | ED Physician Documentation ---
PD HPI SKIN - Stated complaint Stated Complaint: LUMP ON HEAD - Chief complaint Chief Complaint: Wound - Additional information Additional information: 47-year-old male presents the emergency department with a area of irritation to the back of his scalp. Symptoms started 5 days ago. The patient's noticed a scab over the area. No reported drainage. Symptoms are described as mild. No other associated symptoms. Review of Systems Constitutional: denies: Fever, Chills Ears: denies: Ear pain Throat: denies: Sore throat Cardiac: denies: Chest pain / pressure Skin: reports: Lesions Neurologic: denies: Head injury Immunocompromised: denies: Chemotherapy PD PAST MEDICAL HISTORY - Past Medical History Past Medical History: Yes Cardiovascular: None Respiratory: None Endocrine/Autoimmune: Type 2 diabetes GI: Other : None HEENT: Other Psych: None Musculoskeletal: None Derm: None - Past Surgical History Past Surgical History: Yes General: Cholecystectomy - Present Medications Home Medications: Ambulatory Orders Medication Instructions Recorded Confirmed Insulin Glargine [Lantus Solostar] 10 units SUBQ DAILY 06/26/15 03/07/17 Insulin NPH Hum/Reg Insulin Hm 15 unit SUBQ AC 06/26/15 03/07/17 [Novolin 70-30 100 Unit/ml Vial] Oxycodone HCl/Acetaminophen 1 - 2 tab PO Q4H PRN #10 tablet 11/14/17 [Percocet 5-325 mg Tablet] - Allergies Allergies/Adverse Reactions: Allergies Allergy/AdvReac Type Severity Reaction Status Date / Time No Known Drug Allergies Allergy Verified 06/02/18 06:59 - Social History Does the pt smoke?: Yes Smoking Status: Current every day smoker Does the pt drink ETOH?: No Does the pt have substance abuse?: No - Immunizations Immunizations are current?: Yes - POLST Patient has POLST: No PD ED PE NORMAL - General General: Alert and oriented X 3, No acute distress - HEENT HEENT: Atraumatic - Extremities Extremities: No deformity - Neuro Neuro: Alert and oriented X 3, Normal speech - Psych Psych: Normal affect PD ED PE EXPANDED - HEENT HEENT Visual: 1 - abscess (Small indurated area, no fluctuant area, mild cellulitic changesSmall indurated area, no fluctuant area, mild cellulitic changes) Results - Vitals Vitals: Vital Signs - 24 hr 06/02/18 06:50 Temperature 36.8 C Heart Rate 105 H Respiratory 18 Rate Blood Pressure 114/70 O2 Saturation 99 Oxygen O2 Source Room air PD MEDICAL DECISION MAKING - ED course ED course: A bedside ultrasound was done, there was no fluid collection on bedside ultrasound. On clinical exam the area is indurated and firm with cellulitic changes. Since, there is no fluctuant area and no fluid collection on ultrasound no incision and drainage will be attempted at this point. The patient will be started on a course of oral antibiotics. I discussed the possibility that A fluid collection could develop and the patient should return for incision and drainage at that time. I discussed warning signs and recommended returning for any worsening or any concerns Departure - Departure Disposition: 01 Home, Self Care Clinical Impression: Abscess Condition: Good Instructions: ED Abscess Abx Tx Only Ch Follow-Up: Christian Molina MD [Primary Care Provider] - Within 1 week Comments: Please return to the emergency department for worsening symptoms or any concerns
[2018-06-02 07:28] VITALS: BP 128/93
== END 2018-06-02 07:32 | disposition home or self-care (01) ==
LOC: ED 06:49
DX: L02.811 Cutaneous abscess of head [any part, except face] (principal); E11.9 Type 2 diabetes mellitus without complications; Z79.4 Long term (current) use of insulin; F17.200 Nicotine dependence, unspecified, uncomplicated
CPT/HCPCS: 99283; A9270

== ENCOUNTER 2018-06-12 23:42 | Emergency (ER) | payer MEDICAID ==
[2018-06-13] MEDS ORDERED: BUFFERED LIDOCAINE 10 ML SYRINGE SUBQ STA (01:01)
--- NOTE | 2018-06-13 01:04 | ED Physician Documentation ---
PD HPI SKIN - Stated complaint Stated Complaint: LUMP BACK OF HEAD - Chief complaint Chief Complaint: Wound - History obtained from History obtained from: Patient - History of Present Illness Timing - onset: How many weeks ago (2) Timing - duration: Weeks (2) Timing - details: Gradual onset, Still present Location: Neck Quality / character: Painful, Swelling Associated symptoms: No: Fever Contributing factors: Other (has had staph prior) Similar symptoms before: Diagnosis (staph abscess) Recently seen: Emergency Dept - Additional information Additional information: 47-year-old male with a staph abscess to the back of his scalp has been into see the emergency department 11 days ago and was placed on a course of antibiotic. At that time he did not have a demonstratable fluid collection. He states that as he took the antibiotic the swelling went down as he finished it and went off the swelling is come back he now is increased swelling and tenderness. He has had this happen to his neck previously he has happened in his groin previously. Review of Systems Constitutional: denies: Fever Respiratory: denies: Cough GI: denies: Vomiting Skin: reports: Other (swollen tender area) Musculoskeletal: reports: Neck pain Neurologic: denies: Generalized weakness, Focal weakness, Numbness PD PAST MEDICAL HISTORY - Past Medical History Cardiovascular: None Respiratory: None Endocrine/Autoimmune: Type 2 diabetes GI: Other : None HEENT: Other Psych: None Musculoskeletal: None Derm: None - Past Surgical History Past Surgical History: Yes General: Cholecystectomy - Present Medications Home Medications: Ambulatory Orders Medication Instructions Recorded Confirmed Insulin Glargine [Lantus Solostar] 50 units SUBQ DAILY 06/26/15 03/07/17 Calcium Carbonate [Calcium] 40 mg PO DAILY 06/12/18 06/12/18 Gabapentin 300 mg PO BID 06/12/18 06/12/18 Insulin Aspart [NovoLOG] 30 unit SUBQ TIDWM 06/12/18 06/12/18 Sulfamethoxazole/Trimethoprim 1 each PO BID #14 tablet 06/13/18 [Sulfamethoxazole-Tmp Ds Tablet] - Allergies Allergies/Adverse Reactions: Allergies Allergy/AdvReac Type Severity Reaction Status Date / Time No Known Drug Allergies Allergy Verified 06/12/18 23:47 - Social History Does the pt smoke?: Yes Smoking Status: Current every day smoker Does the pt drink ETOH?: No Does the pt have substance abuse?: No - Immunizations Immunizations are current?: Yes - POLST Patient has POLST: No PD ED PE NORMAL - Vitals Vital signs reviewed: Yes (tachy and hypertensive ) - General General: Alert and oriented X 3, No acute distress, Well developed/nourished - HEENT HEENT: Atraumatic, PERRL, EOMI - Neck Neck: Supple, no meningeal sign, No bony TTP, Other (At the base of the skull over the occiput there is a mass about 3cm round with 3 separte areas of escar without active drainage. The left side of this mass is fluctuant. ) - Respiratory Respiratory: No respiratory distress - Derm Derm: Normal color, Warm and dry, No rash - Extremities Extremities: No deformity, No edema - Neuro Neuro: Alert and oriented X 3, gis programmer 2-12 intact, No motor deficit, No sensory deficit, Normal speech Eye Opening: Spontaneous Motor: Obeys Commands Verbal: Oriented GCS Score: 15 - Psych Psych: Normal mood, Normal affect PD ED PE EXPANDED - HEENT HEENT Visual: 1 - abscess Results - Vitals Vitals: Vital Signs - 24 hr 06/12/18 23:44 Temperature 36.2 C L Heart Rate 110 H Respiratory 16 Rate Blood Pressure 139/91 H O2 Saturation 96 Oxygen O2 Source Room air Procedures - Abscess I&D (location) occiput Preparation: Chlorhexadine, Lidocaine 1% Incision: Incised with scalpel, Purulent drainage, Loculations broken, Irrigated, Packed, Culture obtained Other: Pt tolerated well, Dressing applied, Antibiotic prescribed PD MEDICAL DECISION MAKING - ED course Complexity details: reviewed old records, reviewed results, re-evaluated patient, considered differential, d/w patient ED course: 47-year-old male with a staph abscess to the occiput has purulent drainage that is deep in the abscess the loculations were broken in the abscess cavity is irrigated and packed with gauze packing. The patient tolerated this very well. He is asked to return to the emergency department in 2 days for a wound check. We will place him on some Septra. He has a previous wound culture grew a sensitive staph. Departure - Departure Disposition: 01 Home, Self Care Clinical Impression: Abscess Condition: Stable Instructions: ED Abscess IandD Follow-Up: Christian Molina MD [Primary Care Provider] - Prescriptions: Sulfamethoxazole/Trimethoprim [Sulfamethoxazole-Tmp Ds Tablet] 1 each PO BID #14 tablet Forms: Activity restrictions
[2018-06-13] MEDS ORDERED: SULFAM/TRIM 800/160 Prepack 2 PO ONE (03:06)
[2018-06-13 03:21] VITALS: BP 133/77
== END 2018-06-13 03:21 | disposition home or self-care (01) ==
LOC: ED 23:42
DX: L02.811 Cutaneous abscess of head [any part, except face] (principal); B95.8 Unspecified staphylococcus as the cause of diseases classified elsewhere; E11.9 Type 2 diabetes mellitus without complications; Z79.4 Long term (current) use of insulin; F17.200 Nicotine dependence, unspecified, uncomplicated
CPT/HCPCS: 87070; 87181; 87205; 99283

== ENCOUNTER 2018-06-15 10:52 | Emergency (ER) | payer MEDICAID ==
[2018-06-15 11:01] VITALS: BP 127/89
--- NOTE | 2018-06-15 12:41 | ED Physician Documentation ---
History of Present Illness - Stated complaint Stated Complaint: WOUND CHECK - Chief complaint Chief Complaint: General - History obtained from History obtained from: Patient - History of Present Illness Timing: Other (He had incision and drainage of a posterior scalp abscess 2 days ago and returns as recommended for a wound check. He was prescribed Bactrim. In the interim cultures grew out MSSA. Pain is much better and he denies fevers. No side effects from the antibiotics.) Review of Systems Constitutional: denies: Fever, Chills Nose: reports: Reviewed and negative Cardiac: reports: Reviewed and negative PD PAST MEDICAL HISTORY - Past Medical History Cardiovascular: None Respiratory: None Endocrine/Autoimmune: Type 2 diabetes GI: Other : None HEENT: Other Psych: None Musculoskeletal: None Derm: None - Past Surgical History Past Surgical History: Yes General: Cholecystectomy - Present Medications Home Medications: Ambulatory Orders Medication Instructions Recorded Confirmed Insulin Glargine [Lantus Solostar] 50 units SUBQ DAILY 06/26/15 06/15/18 Calcium Carbonate [Calcium] 40 mg PO DAILY 06/12/18 06/15/18 Gabapentin 300 mg PO BID 06/12/18 06/15/18 Insulin Aspart [NovoLOG] 30 unit SUBQ TIDWM 06/12/18 06/15/18 Sulfamethoxazole/Trimethoprim 1 each PO BID #14 tablet 06/13/18 06/15/18 [Sulfamethoxazole-Tmp Ds Tablet] - Allergies Allergies/Adverse Reactions: Allergies Allergy/AdvReac Type Severity Reaction Status Date / Time No Known Drug Allergies Allergy Verified 06/15/18 11:01 - Social History Does the pt smoke?: Yes Smoking Status: Current every day smoker Does the pt drink ETOH?: No Does the pt have substance abuse?: No - Immunizations Immunizations are current?: Yes - POLST Patient has POLST: No PD ED PE NORMAL - Vitals Vital signs reviewed: Yes - General General: Alert and oriented X 3, No acute distress - Neck Neck: Other (On the low occiput/high neck there is an incised abscess with packing in place which was removed. Still a lot of purulent drainage coming out of it and was repacked with quarter-inch packing.) - Neuro Neuro: Alert and oriented X 3, Normal speech Results - Vitals Vitals: Vital Signs - 24 hr 06/15/18 10:59 Temperature 36.2 C L Heart Rate 106 H Respiratory 18 Rate Blood Pressure 127/89 H O2 Saturation 100 Oxygen O2 Source Room air Departure - Departure Disposition: Home, Self Care Clinical Impression: Neck abscess Condition: Good Record reviewed to determine appropriate education?: Yes Instructions: ED Abscess IandD Comments: Continue the current antibiotic. Return if worse. On Wednesday either remove the packing or return here or see your doctor for reevaluation.
== END 2018-06-15 12:43 | disposition home or self-care (01) ==
LOC: ED 10:52
DX: L02.11 Cutaneous abscess of neck (principal); B95.61 Methicillin susceptible Staphylococcus aureus infection as the cause of diseases classified elsewhere; E11.9 Type 2 diabetes mellitus without complications; Z79.4 Long term (current) use of insulin; F17.200 Nicotine dependence, unspecified, uncomplicated
CPT/HCPCS: 99282

== ENCOUNTER 2018-07-17 22:14 | Emergency (ER) | payer MEDICAID ==
--- NOTE | 2018-07-17 23:45 | ED Physician Documentation ---
PD HPI SKIN - Stated complaint Stated Complaint: RT SIDE FACE BUMP - Chief complaint Chief Complaint: Wound - History obtained from History obtained from: Patient - History of Present Illness Timing - onset: How many days ago (3-5) Timing - duration: Days Timing - details: Gradual onset Location: Face Quality / character: Discolored, Raised Similar symptoms before: Diagnosis (similar to previous abscesses) Recently seen: Not recently seen - Additional information Additional information: few days of gradually enlarging, raised redness on right side of face. denies trauma Review of Systems Constitutional: denies: Fever Skin: reports: Lesions PD PAST MEDICAL HISTORY - Past Medical History Past Medical History: Yes Cardiovascular: None Respiratory: None Endocrine/Autoimmune: Type 2 diabetes GI: Other : None HEENT: Other Psych: None Musculoskeletal: None Derm: None - Past Surgical History Past Surgical History: Yes General: Cholecystectomy - Present Medications Home Medications: Ambulatory Orders Medication Instructions Recorded Confirmed Insulin Glargine [Lantus Solostar] 50 units SUBQ DAILY 06/26/15 07/17/18 Gabapentin 300 mg PO BID 06/12/18 07/17/18 Insulin Aspart [NovoLOG] 30 unit SUBQ TIDWM 06/12/18 07/17/18 Metformin HCl 1,000 tab PO BID 07/17/18 07/17/18 Cephalexin [Keflex] 500 mg PO Q6HR #27 capsule 07/18/18 Sulfamethox/Trimeth 800/160 1 each PO BID #13 tablet 07/18/18 [Bactrim Ds 800/160] Hydrocodone/Acetaminophen [[place] 1 each PO Q6H PRN #15 tablet 07/20/18 5-325 Tablet] - Allergies Allergies/Adverse Reactions: Allergies Allergy/AdvReac Type Severity Reaction Status Date / Time No Known Drug Allergies Allergy Verified 07/19/18 22:31 - Social History Does the pt smoke?: Yes Smoking Status: Current every day smoker Does the pt drink ETOH?: No Does the pt have substance abuse?: No - Immunizations Immunizations are current?: Yes - POLST Patient has POLST: No PD ED PE NORMAL - Vitals Vital signs reviewed: Yes - General General: Alert and oriented X 3, No acute distress, Well developed/nourished PD ED PE EXPANDED - HEENT HEENT Visual: 1 - rash (confluent erythema without fluctuance; no discharge. there is small central crusting), swelling (mild swelling), tenderness (mild/minimal TTP) 2 - rash, tenderness Results - Vitals Vitals: Oxygen O2 Source Room air PD MEDICAL DECISION MAKING - ED course Complexity details: reviewed old records, considered differential, d/w patient Departure - Departure Disposition: Home, Self Care Clinical Impression: Cellulitis and abscess of face Condition: Good Instructions: ED Staph Infec Abx Tx Only, ED Cellulitis Facial Follow-Up: Christian Molina MD [Primary Care Provider] - (3-4 days if not improving) Prescriptions: Cephalexin [Keflex] 500 mg PO Q6HR #27 capsule Sulfamethox/Trimeth 800/160 [Bactrim Ds 800/160] 1 each PO BID #13 tablet Discharge Date/Time: 07/18/18 00:11
[2018-07-18] MEDS: SULFAMETH/TRIMETH DS 800/160 MG TABLET PO STA (00:03)
[2018-07-18] MEDS: cephALEXin 250 MG CAPSULE PO STA (00:04)
[2018-07-18 00:10] VITALS: BP 141/93
== END 2018-07-18 00:11 | disposition home or self-care (01) ==
LOC: ED 22:14
DX: L02.01 Cutaneous abscess of face (principal); E11.9 Type 2 diabetes mellitus without complications; F17.200 Nicotine dependence, unspecified, uncomplicated; Z79.4 Long term (current) use of insulin
CPT/HCPCS: 99283

== ENCOUNTER 2018-07-19 22:25 | Emergency (ER) | payer MEDICAID ==
--- NOTE | 2018-07-19 22:58 | ED Physician Documentation ---
PD HPI SKIN - Stated complaint Stated Complaint: RT SIDE FACE SWELLING - Chief complaint Chief Complaint: Heent - History obtained from History obtained from: Patient - History of Present Illness Timing - onset: How many days ago Timing - duration: Days Timing - details: Gradual onset, Still present (He has had tenderness and swelling at the right episcopalian with initially a small amount of drainage and now it is scabbed over and 1/2 cm diameter area. He had some redness and swelling to it and was seen in the ER few days ago and prescribed antibiotics. It does not seem fluctuant enough for drainage. Since that time he states is gotten more red and a little more puffy in the area despite the oral antibiotics. He was prescribed Bactrim and Keflex) Location: Face (right episcopalian) Quality / character: Painful, Discolored (red), Swelling. No: Draining Associated symptoms: Myalgias. No: Fever, Headache Recently seen: Emergency Dept (few days ago with Rx of Bactrim and Keflex, without improvement.) Review of Systems Constitutional: reports: Myalgias. denies: Fever, Chills Cardiac: denies: Chest pain / pressure Respiratory: denies: Dyspnea, Cough GI: denies: Nausea, Vomiting Skin: reports: Lesions PD PAST MEDICAL HISTORY - Past Medical History Cardiovascular: None Respiratory: None Endocrine/Autoimmune: Type 2 diabetes GI: Other : None HEENT: Other Psych: None Musculoskeletal: None Derm: None - Past Surgical History Past Surgical History: Yes General: Cholecystectomy - Present Medications Home Medications: Ambulatory Orders Medication Instructions Recorded Confirmed Insulin Glargine [Lantus Solostar] 50 units SUBQ DAILY 06/26/15 07/17/18 Gabapentin 300 mg PO BID 06/12/18 07/17/18 Insulin Aspart [NovoLOG] 30 unit SUBQ TIDWM 06/12/18 07/17/18 Metformin HCl 1,000 tab PO BID 07/17/18 07/17/18 Cephalexin [Keflex] 500 mg PO Q6HR #27 capsule 07/18/18 Sulfamethox/Trimeth 800/160 1 each PO BID #13 tablet 07/18/18 [Bactrim Ds 800/160] Hydrocodone/Acetaminophen [[place] 1 each PO Q6H PRN #15 tablet 07/20/18 5-325 Tablet] - Allergies Allergies/Adverse Reactions: Allergies Allergy/AdvReac Type Severity Reaction Status Date / Time No Known Drug Allergies Allergy Verified 07/19/18 22:31 - Social History Does the pt smoke?: Yes Smoking Status: Current every day smoker Does the pt drink ETOH?: No Does the pt have substance abuse?: No - Immunizations Immunizations are current?: Yes - POLST Patient has POLST: No PD ED PE NORMAL - Vitals Vital signs reviewed: Yes - General General: Alert and oriented X 3, No acute distress, Well developed/nourished - HEENT HEENT: Other (The right episcopalian area has 1/2 cm diameter scab with surrounding redness. There is some tissue swelling toward the side of the periorbital area. There is no notable fluctuance.) - Neck Neck: Supple, no meningeal sign, No adenopathy - Cardiac Cardiac: RRR, No murmur - Respiratory Respiratory: Clear bilaterally Results - Vitals Vitals: Vital Signs - 24 hr 07/19/18 07/20/18 22:31 00:19 Temperature 36.6 C 36.5 C Heart Rate 116 H 98 Respiratory 16 16 Rate Blood Pressure 132/85 H 129/73 O2 Saturation 97 98 Oxygen O2 Source Room air Procedures - Abscess I&D (location) Right temporal area Preparation: Lidocaine 1%, With epi Incision: Incised with scalpel (at the existing small scab), Purulent drainage, Irrigated, Culture obtained PD MEDICAL DECISION MAKING - ED course Complexity details: considered differential (Had an infection on the right tem ple area that is not improving with antibiotics. It does not not have a significant area of fluctuance but there is likely some trapped pus that is inhibiting improvement. I talked with him and we shared decision for incision and the scab area.), d/w patient Departure - Departure Disposition: 01 Home, Self Care Clinical Impression: Facial abscess Condition: Stable Record reviewed to determine appropriate education?: Yes Instructions: ED Abscess IandD Follow-Up: Christian Molina MD [Primary Care Provider] - Prescriptions: Hydrocodone/Acetaminophen [[place] 5-325 Tablet] 1 each PO Q6H PRN #15 tablet PRN Reason: Pain Comments: Continue your current antibiotics. Use some warm moist towels to the area a few times a day to promote drainage. I think now that the pus is flowing out the infection should clear with the current antibiotics. Tylenol or ibuprofen if needed for pain. Add hydrocodone if needed. Recheck if still not improving over the next 2-3 days. Discharge Date/Time: 07/20/18 00:20
[2018-07-19] MEDS: HYDROcod/ACETAM 5/325 MG TABLET PO STA (23:20)
[2018-07-19] MEDS: LIDOCAINE MPF 1%-EPI 1:200000 30 ML VIAL SUBQ STA (23:20)
[2018-07-20] MEDS: HYDROcod/ACET 5/325 Prepack 4 PO STA (00:09)
[2018-07-20 00:21] VITALS: BP 129/73
== END 2018-07-20 00:20 | disposition home or self-care (01) ==
LOC: ED 22:25
DX: L02.01 Cutaneous abscess of face (principal); E11.9 Type 2 diabetes mellitus without complications; Z79.4 Long term (current) use of insulin; F17.200 Nicotine dependence, unspecified, uncomplicated
CPT/HCPCS: 10060; 87070; 87181; 87205; 99283

== ENCOUNTER 2018-12-10 12:14 | Emergency (ER) | payer MEDICAID ==
[2018-12-10 12:31] VITALS: BP 113/75
--- NOTE | 2018-12-10 13:14 | ED Physician Documentation ---
PD HPI DYSPNEA - Stated complaint Stated Complaint: COUGH, CANT SEE WELL - Chief complaint Chief Complaint: Resp - History obtained from History obtained from: Patient - History of Present Illness Timing - onset: Other (47-year-old gentleman with diabetes and somewhat uncontrolled blood sugars in the mid 200s generally, also a history of tobacco use presents with 3 weeks of productive cough, ear pain, sinus congestion, and watery drainage in his eyes that sometimes causes a film over his vision bilaterally. No fevers.) Review of Systems Constitutional: denies: Fever, Chills Ears: reports: Ear pain Nose: reports: Rhinorrhea / runny nose, Congestion Throat: reports: Sore throat Respiratory: reports: Dyspnea, Cough PD PAST MEDICAL HISTORY - Past Medical History Cardiovascular: None Respiratory: None Endocrine/Autoimmune: Type 2 diabetes GI: Other : None HEENT: Other Psych: None Musculoskeletal: None Derm: None - Past Surgical History Past Surgical History: Yes General: Cholecystectomy - Present Medications Home Medications: Ambulatory Orders Medication Instructions Recorded Confirmed Insulin Glargine [Lantus Solostar] 50 units SUBQ DAILY 06/26/15 07/17/18 Insulin Aspart [NovoLOG] 30 unit SUBQ TIDWM 06/12/18 07/17/18 RX: Gabapentin 300 mg PO BID 06/12/18 07/17/18 RX: Metformin HCl 1,000 tab PO BID 07/17/18 07/17/18 Cephalexin [Keflex] 500 mg PO Q6HR #27 capsule 07/18/18 Sulfamethox/Trimeth 800/160 1 each PO BID #13 tablet 07/18/18 [Bactrim Ds 800/160] Hydrocodone/Acetaminophen [[place] 1 each PO Q6H PRN #15 tablet 07/20/18 5-325 Tablet] RX: Albuterol Sulf [Ventolin Hfa 1 - 2 puffs INH Q4HR PRN #1 inhaler 12/10/18 Inhaler] RX: Azithromycin [Zithromax] 1 tab PO DAILY #6 tablet 12/10/18 guaiFENesin/CODEINE [Robitussin AC] 5 - 10 ml PO Q6H PRN #120 ml 12/10/18 - Allergies Allergies/Adverse Reactions: Allergies Allergy/AdvReac Type Severity Reaction Status Date / Time No Known Drug Allergies Allergy Verified 12/10/18 12:31 - Social History Does the pt smoke?: Yes Smoking Status: Current every day smoker Does the pt drink ETOH?: No Does the pt have substance abuse?: No - Immunizations Immunizations are current?: Yes - POLST Patient has POLST: No PD ED PE NORMAL - Vitals Vital signs reviewed: Yes - General General: Alert and oriented X 3, No acute distress - HEENT HEENT: Other (There is a little bit of mucus over his eyes, no conjunctivitis though. TMs are normal, oropharynx is normal.) - Neck Neck: Supple, no meningeal sign, No bony TTP - Cardiac Cardiac: RRR, No murmur - Respiratory Respiratory: No respiratory distress, Other (Slightly wheezy throughout and diminished at the bases without other focal findings) - Abdomen Abdomen: Non tender - Derm Derm: Normal color, Warm and dry - Extremities Extremities: No edema, No calf tenderness / cord - Neuro Neuro: Alert and oriented X 3, Normal speech Results - Vitals Vitals: Vital Signs - 24 hr 12/10/18 12:28 Temperature 36.8 C Heart Rate 111 H Respiratory 20 Rate Blood Pressure 113/75 O2 Saturation 98 Oxygen O2 Source Room air - Rads (name of study) 2v chest Radiology: EMP read contemporaneously (Bronchial thickening and patchy left medial basilar opacity which may represent developing consolidation) PD MEDICAL DECISION MAKING - ED course ED course: 47-year-old gentleman with diabetes presents with signs and symptoms of bronchitis of 3 weeks duration and probably some element of COPD as well. Steroids were held given the diabetes and lack of wheezing but he is placed on A ntibiotics especially in light of his x-ray showing potentially an early pneumonia on the left. Departure - Departure Disposition: 01 Home, Self Care Clinical Impression: Pneumonia Qualifiers: Pneumonia type: due to unspecified organism Laterality: left Lung location: lower lobe of lung Qualified Code(s): J18.1 - Lobar pneumonia, unspecified organism Condition: Good Record reviewed to determine appropriate education?: Yes Instructions: ED Bronchitis Asthmatic Prescriptions: RX: Albuterol Sulf [Ventolin Hfa Inhaler] 1 - 2 puffs INH Q4HR PRN #1 inhaler PRN Reason: Shortness Of Air/Wheezing RX: Azithromycin [Zithromax] 1 tab PO DAILY #6 tablet guaiFENesin/CODEINE [Robitussin AC] 5 - 10 ml PO Q6H PRN #120 ml PRN Reason: Cough Comments: Do not drink or drive while taking prescription cough medicine. Call your doctor to arrange a follow-up appointment, make the next available appointment. In the interim, return anytime if worse or if new symptoms develop. Discharge Date/Time: 12/10/18 13:32
--- NOTE | 2018-12-10 13:37 | XRAY Report ---
Reason: productive cough, chills Procedure Date: 12/10/2018 Accession Number: [id number] / [id number] Procedure: XR - Chest 2 View X-Ray CPT Code: 08218 FULL RESULT: EXAM: CHEST RADIOGRAPHY EXAM DATE: 12/10/2018 01:02 PM. CLINICAL HISTORY: Productive cough, chills. COMPARISON: RIBS 2 VIEW LT 06/03/2016 9:22 PM. TECHNIQUE: 2 views. FINDINGS: Lungs/Pleura: Patchy left medial basilar opacity. Bronchial thickening. No pneumothorax. No pleural effusions. Mediastinum: Heart size is normal. Aorta is mildly tortuous. Other: Degenerative changes. IMPRESSION: 1. Bronchial thickening and patchy left medial basilar opacity which may represent developing consolidation. RADIA
== END 2018-12-10 13:32 | disposition home or self-care (01) ==
LOC: ED 12:14
DX: J18.1 Lobar pneumonia, unspecified organism (principal); E11.9 Type 2 diabetes mellitus without complications; Z79.4 Long term (current) use of insulin; F17.200 Nicotine dependence, unspecified, uncomplicated
CPT/HCPCS: 71046; 99283

== ENCOUNTER 2019-04-14 08:52 | Emergency (ER) | payer MEDICAID ==
--- NOTE | 2019-04-14 09:41 | ED Physician Documentation ---
History of Present Illness - Stated complaint Stated Complaint: SORES ON LEGS - Chief complaint Chief Complaint: Wound - Additonal information Additional information: This is a 48-year-old male with a history of diabetes with neuropathy who presents with sores on his legs. Patient states that he was cutting wood 2 weeks ago when he slipped and fell scraping his legs on some logs. They seem to be healing fairly well Until 3 days ago he began having redness. He has 2 scrapes on his right leg and one on the left, and the redness is spreading around the scrape up towards his knee on the left. She states that not painful foxes neuropathy makes it so he cannot feel much on his legs the area of the rash. No fever. He states his pulse is always a bit high. He has not been checking his sugar well he thinks his sugars probably high given the holidays and has not been eating well. Review of Systems Constitutional: denies: Fever Throat: denies: Oral lesions / sores Cardiac: denies: Chest pain / pressure Skin: reports: Lesions Endocrine: reports: Other (Diabetes) PD PAST MEDICAL HISTORY - Past Medical History Cardiovascular: None Respiratory: None Endocrine/Autoimmune: Type 2 diabetes GI: Other : None HEENT: Other Psych: None Musculoskeletal: None Derm: None - Past Surgical History Past Surgical History: Yes General: Cholecystectomy - Present Medications Home Medications: Ambulatory Orders Medication Instructions Recorded Confirmed Insulin Glargine [Lantus Solostar] 50 units SUBQ DAILY 06/26/15 07/17/18 Gabapentin 300 mg PO BID 06/12/18 07/17/18 Insulin Aspart [NovoLOG] 30 unit SUBQ TIDWM 06/12/18 07/17/18 Metformin HCl 1,000 tab PO BID 07/17/18 07/17/18 Cephalexin [Keflex] 500 mg PO Q6HR #27 capsule 07/18/18 Sulfamethox/Trimeth 800/160 1 each PO BID #13 tablet 07/18/18 [Bactrim Ds 800/160] Hydrocodone/Acetaminophen [[place] 1 each PO Q6H PRN #15 tablet 07/20/18 5-325 Tablet] Albuterol Sulf [Ventolin Hfa 1 - 2 puffs INH Q4HR PRN #1 inhaler 12/10/18 Inhaler] Azithromycin [Zithromax] 1 tab PO DAILY #6 tablet 12/10/18 guaiFENesin/CODEINE [Robitussin AC] 5 - 10 ml PO Q6H PRN #120 ml 12/10/18 Cephalexin [Keflex] 500 mg PO Q6H #40 capsule 04/14/19 - Allergies Allergies/Adverse Reactions: Allergies Allergy/AdvReac Type Severity Reaction Status Date / Time No Known Drug Allergies Allergy Verified 12/10/18 12:31 - Social History Does the pt smoke?: Yes Smoking Status: Current every day smoker Does the pt drink ETOH?: No Does the pt have substance abuse?: No - Immunizations Immunizations are current?: Yes - POLST Patient has POLST: No PD ED PE NORMAL - Vitals Vital signs reviewed: Yes - General General: Other (Thin appearing male in no acute distress) - HEENT HEENT: Atraumatic - Neck Neck: Supple, no meningeal sign - Cardiac Cardiac: Other (Tachycardic, regular rhythm) - Respiratory Respiratory: No respiratory distress, Clear bilaterally - Abdomen Abdomen: Soft, Non tender, Non distended - Extremities Extremities: No deformity, Other (There are 3 crusted lesions, 2 on the right anterior traore with several cm of surrounding erythema but no purulence or draina ge, and one on the left that is 3cm in diameter and with 4-5 cm surrdounding erythema. Normal ROM of knees and distal joints. Sensation slightly reduced over BLE consistent with pt's neuropathy. cap refill brisk. No fluctuance.) - Neuro Neuro: Alert and oriented X 3 Results - Vitals Vitals: Oxygen O2 Source Room air - Labs Labs: Laboratory Tests 04/14/19 04/14/19 04/14/19 09:53 09:53 09:53 WBC 10.2 RBC 3.45 L Hgb 10.9 L Hct 31.4 L MCV 91.0 MCH 31.6 H MCHC 34.7 RDW 12.3 Plt Count 150 MPV 9.4 Neut # (Auto) 8.2 H Lymph # (Auto) 0.9 L [place] # (Auto) 1.0 Eos # (Auto) 0.0 Baso # (Auto) 0.1 Absolute Nucleated RBC 0.00 Nucleated RBC % 0.0 Sodium 129 L Potassium 4.0 Chloride 90 L Carbon Dioxide 26 Anion Gap 13.0 BUN 19 Creatinine 0.9 Estimated GFR (MDRD) 90 Glucose 428 H POC Whole Bld Glucose Lactic Acid 1.0 Calcium 8.8 Total Bilirubin 0.8 AST 10 ALT 11 Alkaline Phosphatase 84 C-Reactive Protein 19.3 H Total Protein 7.6 Albumin 3.1 L Globulin 4.5 H Albumin/Globulin Ratio 0.7 L Lipase 23 04/14/19 11:51 WBC RBC Hgb Hct MCV MCH MCHC RDW Plt Count MPV Neut # (Auto) Lymph # (Auto) [place] # (Auto) Eos # (Auto) Baso # (Auto) Absolute Nucleated RBC Nucleated RBC % Sodium Potassium Chloride Carbon Dioxide Anion Gap BUN Creatinine Estimated GFR (MDRD) Glucose POC Whole Bld Glucose 308 H Lactic Acid Calcium Total Bilirubin AST ALT Alkaline Phosphatase C-Reactive Protein Total Protein Albumin Globulin Albumin/Globulin Ratio Lipase - Rads (name of study) R tib fib Radiology: Other (No soft tissue gas or osteomyelitis seen.) PD MEDICAL DECISION MAKING - ED course Complexity details: considered differential (Diabetic wounds, hyperglycemia, cellulitis, electrolyte abnormality, osteomyelitis, DKA, abscess) ED course: Pt is well-appearing on exam, he is tachycardic. He has obvious cellulitis around his leg wounds, without signs of purulence or abscess. The RLE wounds appear to have a mild cellulitis, the LLE is a bit more extensive and so XR obtained and is negative. His labs show hyperglycemia with hyponatremia/pseudohyponatremia. No leukocytosis, but his CRP is elevated. He has not been monitoring his blood sugar or controlling his diabetes well. Bicarb is normal, no signs of DKA, no signs HHS. Clinical exam and duration of progression makes necrotizing infection unlikely. He was given a few units of insulin IV, and on recheck his glucose is downtrending as expected. I discussed admission for his wounds and cellulitis, pt declines and wants to go home. He was agreeable to a dose of ceftriaxone here. I discussed the risks of going home including worsening infection, sepsis, loss of limb if the infection progresses, he understands but wants to trial PO outpatient therapy. I presc ribed keflex and recommended recheck of the wounds within 48 hours, return sooner if any worsening. Cellulitis margins were drawn out. I also discussed close blood sugar control. Heart rate was in low 100s on my recheck, which is improving and he states he always runs high, and wants to go home. He was discharged in accordance with his wishes. Departure - Departure Disposition: Home, Self Care Clinical Impression: Cellulitis Qualifiers: Site of cellulitis: extremity Site of cellulitis of extremity: lower extremity Laterality: unspecified laterality Qualified Code(s): L03.119 - Cellulitis of unspecified part of limb Condition: Good Instructions: ED Infec Skin Cellulitis Follow-Up: Christian Molina MD [Primary Care Provider] - Within 3 Days (For wound check) Prescriptions: Cephalexin [Keflex] 500 mg PO Q6H #40 capsule Comments: You do have a skin infection around the wounds on your legs. We are starting antibiotics, please watch these wounds carefully and if you are having worsening it is important that you return to the emergency department for further treatment and possibly admission for IV antibiotics. You have a bit of an anemia as well, please follow-up with your primary care about this, your hemoglobin today was 10.9. Also your glucose was quite high today - please check it frequently and try to keep your blood sugar in normal range, as high blood sugar can hinder the healing of your wounds. If you are having any new or worsening symptoms or if your wounds or not improving please return to the emergency department. It is a good idea to have a wound check in 48 hours either with your primary care provider or here unless redness is completely resolving Discharge Date/Time: 04/14/19 12:20
[2019-04-14] MEDS ORDERED: LACTATED RINGERS 1,000 ML IV STA (09:43)
[2019-04-14 10:03] LABS: BASOPHILS # (AUTO) 0.1 10^3/uL (0.0-0.1); BASOPHILS % (AUTO) 0.6 %; EOSINOPHILS % (AUTO) 0.1 %; HGB - HEMOGLOBIN 10.9 g/dL (14.0-18.0); LYMPHOCYTES # (AUTO) 0.9 10^3/uL (1.5-3.5); LYMPHOCYTES % (AUTO) 9.2 %; MEAN CORPUSCULAR HEMOGLOBIN 31.6 pg (27.0-31.0); MEAN CORPUSCULAR HGB CONC 34.7 g/dL (32.0-36.0); MEAN PLATELET VOLUME 9.4 fL (7.4-11.4); MONOCYTES % (AUTO) 9.3 %; NEUTROPHILS # (AUTO) 8.2 10^3/uL (1.5-6.6); NEUTROPHILS % (AUTO) 80.3 %; PLT - PLATELET COUNT 150 10^3/uL (130-450); RED BLOOD COUNT 3.45 10^6/uL (4.70-6.10); RED CELL DISTRIBUTION WIDTH 12.3 % (12.0-15.0); WHITE BLOOD COUNT 10.2 x10^3/uL (4.8-10.8)
[2019-04-14 10:22] LABS: ALBUMIN 3.1 g/dL (3.2-5.5); ALBUMIN/GLOBULIN RATIO 0.7 (1.0-2.2); BILIRUBIN,TOTAL 0.8 mg/dL (0.2-1.0); CALCIUM 8.8 mg/dL (8.5-10.3); CREATININE 0.9 mg/dL (0.6-1.2); CRP - C-REACTIVE PROTEIN 19.3 mg/dL (0-1.0); TOTAL PROTEIN 7.6 g/dL (6.7-8.2)
[2019-04-14] MEDS ORDERED: INSULIN REGULAR HUMAN 100 UNIT/1 ML 10 ML MDV IVP STA (10:47)
[2019-04-14] MEDS ORDERED: cefTRIAXone 1 GM in SODIUM CHLORIDE 0.9% MINIBAG 100 ML IV STA (10:48)
--- NOTE | 2019-04-14 11:28 | XRAY Report ---
Reason: Assess for osteo, prox tibia wound Procedure Date: 04/14/2019 Accession Number: [id number] / [id number] Procedure: XR - Tib/Fib LT CPT Code: Final Report FULL RESULT: EXAM: LEFT TIBIA/FIBULA RADIOGRAPHY 2 VIEWS EXAM DATE: 04/14/2019. CLINICAL HISTORY: Proximal lower leg wound. COMPARISON: None. TECHNIQUE: AP and lateral views. FINDINGS: Bones: No fracture, periosteal reaction, or bony erosion. Joints: The included knee and ankle appear normal. Soft Tissues: Mid and proximal medial swelling. Small round well-defined calcifications medial to the mid tibia and lateral to the proximal tibia, probably phleboliths. IMPRESSION: Mid and proximal medial soft tissue swelling. No radiopaque foreign body or soft tissue gas. No bone or joint abnormality. RADIA
[2019-04-14 12:08] VITALS: BP 142/90
== END 2019-04-14 12:20 | disposition home or self-care (01) ==
LOC: ED 08:52
DX: L03.115 Cellulitis of right lower limb (principal); L03.116 Cellulitis of left lower limb; R00.0 Tachycardia, unspecified; D64.9 Anemia, unspecified; E11.65 Type 2 diabetes mellitus with hyperglycemia; E11.42 Type 2 diabetes mellitus with diabetic polyneuropathy; F17.200 Nicotine dependence, unspecified, uncomplicated; Z79.4 Long term (current) use of insulin
CPT/HCPCS: 36415; 73590; 80053; 83605; 83690; 85025; 86140; 96361; 96365; 99284; J1815; J7120

== ENCOUNTER 2019-09-14 12:24 | Outpatient (CLI) | payer MEDICAID | END 2019-09-14 12:25 | disposition critical access hospital (66) | LOC: EMS 12:24 | PROVIDERS: ATTEND Surgery | DX: S49.92XA Unspecified injury of left shoulder and upper arm, initial encounter (principal); R55 Syncope and collapse; W18.11XA Fall from or off toilet without subsequent striking against object, initial encounter; Y92.002 Bathroom of unspecified non-institutional (private) residence as the place of occurrence of the external cause | CPT/HCPCS: A0425; A0427; A0999 ==

== ENCOUNTER 2019-09-14 12:55 | Emergency (ER) | payer MEDICAID ==
[2019-09-14] MEDS ORDERED: HYDROmorphone 1 MG/ML CARPUJECT IVP STA (13:35)
--- NOTE | 2019-09-14 13:37 | ED Physician Documentation ---
PD HPI UPPER EXT INJURY - Stated complaint Stated Complaint: SYNCOPE - Chief complaint Chief Complaint: Ext Problem - History obtained from History obtained from: Patient (48-year-old gentleman with history of seizure disorder, has about 1 seizure a month. He was on the toilet today and he thinks he probably had a seizure falling to his left but he does not remember it. He subsequently had a shoulder injury and no other injuries now. No headache. Other than the pain of the shoulder he feels back to normal. Last seizure was about a month ago. He is on Tegretol for same.) Review of Systems Constitutional: denies: Fever, Chills Throat: reports: Reviewed and negative Cardiac: reports: Reviewed and negative Respiratory: reports: Reviewed and negative PD PAST MEDICAL HISTORY - Past Medical History Cardiovascular: None Respiratory: None Endocrine/Autoimmune: Type 2 diabetes GI: Other : None HEENT: Other Psych: None Musculoskeletal: None Derm: None - Past Surgical History Past Surgical History: Yes General: Cholecystectomy - Present Medications Home Medications: Ambulatory Orders Medication Instructions Recorded Confirmed Metformin HCl 1,500 tab PO BID 07/17/18 09/14/19 Aspirin Chewable [[place] 81 mg PO DAILY 09/14/19 09/14/19 Aspirin] Atorvastatin [Lipitor] 40 mg PO DAILY 09/14/19 09/14/19 Carbamazepine [Carbamazepine ER] 400 mg PO DAILY 09/14/19 09/14/19 Oxycodone HCl/Acetaminophen 1 - 2 each PO Q6H PRN #20 tablet 09/14/19 [Percocet 5-325 mg Tablet] - Allergies Allergies/Adverse Reactions: Allergies Allergy/AdvReac Type Severity Reaction Status Date / Time No Known Drug Allergies Allergy Verified 09/14/19 13:00 - Social History Does the pt smoke?: Yes Smoking Status: Current every day smoker Does the pt drink ETOH?: No Does the pt have substance abuse?: No - Immunizations Immunizations are current?: Yes - POLST Patient has POLST: No PD ED PE NORMAL - Vitals Vital signs reviewed: Yes - General General: Alert and oriented X 3, No acute distress - HEENT HEENT: PERRL, EOMI - Neck Neck: Supple, no meningeal sign, No bony TTP - Cardiac Cardiac: RRR, No murmur - Respiratory Respiratory: No respiratory distress, Clear bilaterally - Abdomen Abdomen: Normal bowel sounds, Soft, Non tender - Back Back: No CVA TTP, No spinal TTP - Derm Derm: Normal color, Warm and dry - Extremities Extremities: Other (He has an obvious deformity of the left shoulder at the distal clavicle. He is unable to range it. 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1 MCH 30.7 MCHC 33.0 RDW 12.9 Plt Count 138 MPV 8.8 Neut # (Auto) 4.4 Lymph # (Auto) 1.4 L [place] # (Auto) 0.5 Eos # (Auto) 0.2 Baso # (Auto) 0.1 Absolute Nucleated RBC 0.00 Nucleated RBC % 0.0 Sodium 133 L Potassium 4.5 Chloride 96 L Carbon Dioxide 28 Anion Gap 9.0 BUN 24 H Creatinine 0.8 Estimated GFR (MDRD) 104 Glucose 227 H Calcium 9.3 Total Bilirubin 0.5 AST 19 ALT 33 Alkaline Phosphatase 112 Total Protein 7.9 Albumin 3.3 Globulin 4.6 H Albumin/Globulin Ratio 0.7 L Lipase 27 Carbamazepine 7.3 - Rads (name of study) Left shoulder x-ray Radiology: EMP read contemporaneously (Displaced and comminuted fracture of the left lateral clavicle) PD MEDICAL DECISION MAKING - ED course ED course: 48-year-old gentleman with recurrent seizure disorder had probably a seizure, less likely syncope while on the toilet today breaking his collarbone. He was placed in a sling and his pain was controlled. Labs are unremarkable as is his EKG. Departure - Departure Disposition: 01 Home, Self Care Clinical Impression: Seizure Closed left clavicular fracture Qualifiers: Encounter type: initial encounter Clavicle location: lateral end Fracture alignment: displaced Qualified Code(s): S42.032A - Displaced fracture of lateral end of left clavicle, initial encounter for closed fracture Condition: Good Record reviewed to determine appropriate education?: Yes Instructions: ED Fx Clavicle Follow-Up: [facility] [Provider Group] Prescriptions: Oxycodone HCl/Acetaminophen [Percocet 5-325 mg Tablet] 1 - 2 each PO Q6H PRN #20 tablet PRN Reason: pain Comments: For the collarbone, please follow-up with the orthopedics office, call them today for an appointment. Wear the sling and take the pain medication as needed. Do not drink or drive with the pain medication. You should not be driving anyway with the seizure disorder. Given that your seizure disorder is uncontrolled continue to follow-up with your neurologist, next available appointment.
--- NOTE | 2019-09-14 13:57 | XRAY Report ---
Reason: trauma Procedure Date: 09/14/2019 Accession Number: [id number] / [id number] Procedure: XR - Shoulder 2 View LT CPT Code: Final Report FULL RESULT: EXAM: IMPRESSION: Displaced comminuted fracture of the lateral left clavicle.
[2019-09-14 13:59] LABS: BASOPHILS # (AUTO) 0.1 10^3/uL (0.0-0.1); BASOPHILS % (AUTO) 1.1 %; EOSINOPHILS # (AUTO) 0.2 10^3/uL (0.0-0.7); EOSINOPHILS % (AUTO) 2.8 %; HGB - HEMOGLOBIN 10.7 g/dL (14.0-18.0); LYMPHOCYTES # (AUTO) 1.4 10^3/uL (1.5-3.5); LYMPHOCYTES % (AUTO) 20.9 %; MEAN CORPUSCULAR HEMOGLOBIN 30.7 pg (27.0-31.0); MEAN CORPUSCULAR VOLUME 93.1 fL (80.0-94.0); MEAN PLATELET VOLUME 8.8 fL (7.4-11.4); MONOCYTES # (AUTO) 0.5 10^3/uL (0.0-1.0); MONOCYTES % (AUTO) 7.2 %; NEUTROPHILS # (AUTO) 4.4 10^3/uL (1.5-6.6); NEUTROPHILS % (AUTO) 67.7 %; PLT - PLATELET COUNT 138 10^3/uL (130-450); RED BLOOD COUNT 3.48 10^6/uL (4.70-6.10); RED CELL DISTRIBUTION WIDTH 12.9 % (12.0-15.0); WHITE BLOOD COUNT 6.5 x10^3/uL (4.8-10.8)
[2019-09-14 14:14] LABS: ALBUMIN 3.3 g/dL (3.2-5.5); ALBUMIN/GLOBULIN RATIO 0.7 (1.0-2.2); ALKALINE PHOSPHATASE 112 IU/L (42-121); ALT ALANINE AMINOTRANSFERASE 33 IU/L (10-60); AST ASPARTATE AMINOTRANSFERASE 19 IU/L (10-42); BILIRUBIN,TOTAL 0.5 mg/dL (0.2-1.0); BUN - BLOOD UREA NITROGEN 24 mg/dL (6-20); CALCIUM 9.3 mg/dL (8.5-10.3); CARBAMAZEPINE (TEGRETOL) 7.3 ug/mL; CARBON DIOXIDE - CO2 28 mmol/L (21-32); CHLORIDE 96 mmol/L (101-111); CREATININE 0.8 mg/dL (0.6-1.2); GLUCOSE 227 mg/dL (70-100); LIPASE 27 U/L (22-51); SODIUM 133 mmol/L (135-145); TOTAL PROTEIN 7.9 g/dL (6.7-8.2)
[2019-09-14 14:34] VITALS: BP 111/89
== END 2019-09-14 14:37 | disposition home or self-care (01) ==
LOC: EDUNIT# → ED 12:55
DX: R56.9 Unspecified convulsions (principal); S42.032A Displaced fracture of lateral end of left clavicle, initial encounter for closed fracture; W18.11XA Fall from or off toilet without subsequent striking against object, initial encounter; E11.9 Type 2 diabetes mellitus without complications; F17.200 Nicotine dependence, unspecified, uncomplicated; Z79.84 Long term (current) use of oral hypoglycemic drugs
CPT/HCPCS: 36415; 73030; 80053; 80156; 83690; 85025; 93005; 96374; 99284; J1170

== ENCOUNTER 2022-02-25 14:35 | Outpatient (CLI) | payer MEDICAID | END 2022-02-25 23:59 | disposition short-term general hospital (02) | LOC: EMS 14:35 | DX: R53.1 Weakness (principal); R53.83 Other fatigue; R11.0 Nausea; R10.2 Pelvic and perineal pain; R15.9 Full incontinence of feces; N18.30 Chronic kidney disease, stage 3 unspecified | CPT/HCPCS: A0425; A0427; A0999 ==

== ENCOUNTER → 2022-03-17 | Outpatient (CLI) | payer MEDICAID | END | disposition EMS.NT | LOC: EMS 16:36 | DX: E10.649 Type 1 diabetes mellitus with hypoglycemia without coma (principal) ==

== ENCOUNTER 2023-04-05 05:27 | Outpatient (CLI) | payer MEDICAID | END 2023-04-05 05:28 | disposition critical access hospital (66) | LOC: EMS 05:27 | DX: R41.0 Disorientation, unspecified (principal); R09.89 Other specified symptoms and signs involving the circulatory and respiratory systems | CPT/HCPCS: A0425; A0427; A0999; 36415 ==

== ENCOUNTER 2023-04-05 05:57 | Emergency (ER) | payer MEDICAID ==
--- NOTE | 2023-04-05 05:57 | ED Physician Documentation ---
History of Present Illness - Stated complaint Stated Complaint: AMS/WEAKNESS - History obtained from History obtained from: Patient, EMS - Additonal information Additional information: BIBA. Per EMS, family called 911 due to patient exhibiting AMS, generalized weakness for 1-2 days, poor PO intake. Patient is unable to contribute to HPI/ROS due to AMS. EMS notes initial room-air pulse ox was 75% and SBPs have been in the 80s. He has received 600cc NS IV en route. Recent inpatient stay at [facility] for DVT, possible PE Review of Systems Unable to obtain: AMS PD PAST MEDICAL HISTORY - Past Medical History Cardiovascular: None Respiratory: None Neuro: Seizure disorder Endocrine/Autoimmune: Type 2 diabetes GI: Other : None HEENT: Other Psych: None Musculoskeletal: None Derm: None - Past Surgical History Past Surgical History: Yes General: Cholecystectomy - Present Medications Home Medications: Ambulatory Orders Medication Instructions Recorded Confirmed Aspirin Chewable [St [place] 81 mg PO DAILY 09/14/19 09/14/19 Aspirin] Atorvastatin [Lipitor] 40 mg PO DAILY 09/14/19 04/05/23 Albuterol Sulfate [Proair 90 mcg IH Q4HR PRN 04/05/23 04/05/23 Respiclick] Apixaban [Eliquis] 5 mg PO BID 04/05/23 04/05/23 Escitalopram Oxalate 20 mg PO DAILY 04/05/23 04/05/23 Ferrous Sulfate [Feosol] 325 mg PO DAILY 04/05/23 04/05/23 Metformin HCl [Metformin ER 750 mg PO BID 04/05/23 04/05/23 Osmotic] Metoprolol Succinate [Toprol Xl] 25 mg PO DAILY 04/05/23 04/05/23 Spironolactone [Aldactone] 25 mg PO DAILY 04/05/23 04/05/23 Torsemide 1 - 2 tab PO DAILY 04/05/23 04/05/23 lamoTRIgine [LaMICtal] 100 mg PO BID 04/05/23 04/05/23 - Allergies Allergies/Adverse Reactions: Allergies Allergy/AdvReac Type Severity Reaction Status Date / Time No Known Drug Allergies Allergy Verified 04/05/23 05:54 - Social History Does the pt smoke?: Yes Smoking Status: Current every day smoker Does the pt drink ETOH?: No Does the pt have substance abuse?: No - Immunizations Immunizations are current?: Yes - POLST Patient has POLST: No PD ED PE NORMAL - Vitals Vital signs reviewed: Yes - General General: Other (pale, lethargic, follows simple commands albeit slowly) - HEENT HEENT: PERRL, EOMI - Neck Neck: Supple, no meningeal sign - Cardiac Cardiac: RRR - Respiratory Respiratory: No respiratory distress - Abdomen Abdomen: Soft, Non tender - Neuro Eye Opening: To Voice Motor: Obeys Commands Verbal: Confused GCS Score: 13 PD ED PE EXPANDED - Respiratory Respiratory: Rhonchi (bilateral rhonchi but good air flow) - Derm Derm: Pale - Extremities Extremities: Pedal edema bilateral - Neuro Neuro: Lethargic, PERRL Results - Vitals Vitals: Vital Signs - 24 hr 04/05/23 04/05/23 04/05/23 05:54 06:05 06:19 Temperature 35.3 C L Heart Rate 86 84 84 Respiratory 31 H 32 H 34 H Rate Blood Pressure 68/46 L 69/54 L 66/49 L O2 Saturation 96 98 96 If not protocol 10 10 : Oxygen Flow, liters/minute 04/05/23 04/05/23 04/05/23 06:31 06:34 07:01 Temperature Heart Rate 92 91 91 Respiratory 27 H 38 H 16 Rate Blood Pressure 83/54 L 92/53 L 94/51 L O2 Saturation 92 92 95 If not protocol 10 10 12 : Oxygen Flow, liters/minute 04/05/23 04/05/23 04/05/23 07:31 08:00 08:22 Temperature Heart Rate 80 90 93 Respiratory 24 20 20 Rate Blood Pressure 88/54 L 88/58 L 105/64 O2 Saturation 96 98 99 If not protocol 12 12 12 : Oxygen Flow, liters/minute 04/05/23 04/05/23 04/05/23 08:30 08:40 09:00 Temperature Heart Rate 90 90 95 Respiratory 22 25 H 24 Rate Blood Pressure 144/72 H 165/68 H 122/65 O2 Saturation 98 96 99 If not protocol 12 12 12 : Oxygen Flow, liters/minute 04/05/23 04/05/23 04/05/23 09:30 10:00 10:30 Temperature 36.5 C Heart Rate 90 94 93 Respiratory 20 28 H 30 H Rate Blood Pressure 88/54 L 113/64 113/60 O2 Saturation 98 96 94 If not protocol 12 12 12 : Oxygen Flow, liters/minute 04/05/23 04/05/23 04/05/23 11:00 11:30 12:00 Temperature Heart Rate 92 91 91 Respiratory 30 H 22 22 Rate Blood Pressure 104/59 L 102/64 110/64 O2 Saturation 93 94 98 If not protocol 8 12 12 : Oxygen Flow, liters/minute 04/05/23 04/05/23 04/05/23 12:30 13:00 13:30 Temperature Heart Rate 88 92 92 Respiratory 15 20 15 Rate Blood Pressure 96/58 L 117/66 122/64 O2 Saturation 98 99 96 If not protocol 12 12 : Oxygen Flow, liters/minute 04/05/23 04/05/23 04/05/23 14:00 14:30 15:00 Temperature Heart Rate 94 94 91 Respiratory 16 22 22 Rate Blood Pressure 125/65 123/66 133/74 H O2 Saturation 96 98 94 If not protocol 9 9 : Oxygen Flow, liters/minute 04/05/23 04/05/23 04/05/23 15:30 16:00 16:30 Temperature Heart Rate 94 95 93 Respiratory 18 19 22 Rate Blood Pressure 137/62 H 131/64 H 105/59 L O2 Saturation 97 96 97 If not protocol 9 9 : Oxygen Flow, liters/minute 04/05/23 04/05/23 04/05/23 17:00 17:30 17:58 Temperature Heart Rate 92 92 91 Respiratory 22 15 24 Rate Blood Pressure 106/60 111/61 91/59 L O2 Saturation 93 93 96 If not protocol 8 8 8 : Oxygen Flow, liters/minute 04/05/23 04/05/23 04/05/23 18:00 18:30 19:00 Temperature 36.7 C Heart Rate 96 94 96 Respiratory 28 H 18 20 Rate Blood Pressure 95/55 L 126/57 L 135/63 H O2 Saturation 96 93 94 If not protocol 8 8 8 : Oxygen Flow, liters/minute 04/05/23 04/05/23 04/05/23 19:30 20:00 20:15 Temperature Heart Rate 97 96 96 Respiratory 16 27 H 24 Rate Blood Pressure 136/62 H 129/60 O2 Saturation 92 95 If not protocol 7 7 8 : Oxygen Flow, liters/minute 04/05/23 04/05/23 04/05/23 20:30 21:00 21:30 Temperature Heart Rate 100 100 97 Respiratory 29 H 33 H 23 Rate Blood Pressure 143/62 H 128/59 L 110/60 O2 Saturation 95 94 94 If not protocol 7 7 7 : Oxygen Flow, liters/minute 04/05/23 04/05/23 04/05/23 22:00 22:30 23:00 Temperature Heart Rate 96 97 96 Respiratory 24 29 H 26 H Rate Blood Pressure 105/57 L 113/59 L 116/58 L O2 Saturation 94 97 97 If not protocol 7 7 7 : Oxygen Flow, liters/minute 04/05/23 23:30 Temperature Heart Rate 95 Respiratory 25 H Rate Blood Pressure 123/57 L O2 Saturation 97 If not protocol 7 : Oxygen Flow, liters/minute Oxygen O2 Source Simple Mask - EKG (time done) No standard instances EKG releavant findings:: EKG personally interpreted by author of this note. Relevant findings are: Rate: Rate (enter#) (85) [place]: Normal Intervals: Prolonged QT QRS: LVH Ischemia: Normal ST segments - Labs Labs: Laboratory Tests 04/05/23 04/05/23 04/05/23 05:59 06:30 06:30 WBC 7.3 RBC 2.60 L Hgb 7.7 L Hct 24.6 L MCV 94.6 H MCH 29.6 MCHC 31.3 L RDW 14.5 Plt Count 159 MPV 9.2 Neut # (Auto) Not Reportable Lymph # (Auto) Not Reportable [place] # (Auto) Not Reportable Eos # (Auto) Not Reportable Baso # (Auto) Not Reportable Absolute Nucleated RBC Not Reportable Total Counted 100 Band Neuts % (Manual) 24 H Reactive Lymphs % (Man) 2 Abnorm Lymph % (Manual) 0 Metamyelocytes % 2 H Myelocytes % 2 H Nucleated RBC % Not Reportable Neutrophils # (Manual) 5.6 Lymphocytes # (Manual) 1.1 L Monocytes # (Manual) 0.3 Eosinophils # (Manual) 0.0 Basophils # (Manual) 0.0 Differential Comment MANUAL DIFFERENTIAL Manual Slide Review Indicated Platelet Estimate Platelet Morphology RBC Morph Micro Appear Sodium 132 L Potassium 3.5 Chloride 97 L Carbon Dioxide 20 L Anion Gap 15.0 H BUN 109 H* Creatinine 4.4 H Estimated GFR (MDRD) 14 L Glucose 93 POC Whole Bld Glucose 91 Lactic Acid Calcium 8.3 L Magnesium Total Bilirubin 0.5 AST 30 ALT 16 Alkaline Phosphatase 175 H B-Natriuretic Peptide Total Protein 6.3 L Albumin 2.3 L Globulin 4.0 Albumin/Globulin Ratio 0.6 L Lipase < 10 L Urine Color Urine Clarity Urine pH Ur Specific [place] Urine Protein Urine Glucose (UA) Urine Ketones Urine Occult Blood Urine Nitrite Urine Bilirubin Urine Urobilinogen Ur Leukocyte Esterase Urine RBC Urine WBC Ur Squamous Epith Cells Urine Bacteria Ur Microscopic Review Urine Culture Comments Nasal Adenovirus (PCR) Nasal B. parapertussis DNA (PCR) Nasal Coronavir 229E PCR Nasal Coronavir HKU1 PCR Nasal Coronavir NL63 PCR Nasal Coronavir OC43 PCR Nasal Enterovir/Rhinovir PCR Nasal Influenza B PCR Nasal Influenza A PCR Nasal Parainfluen 1 PCR Nasal Parainfluen 2 PCR Nasal Parainfluen 3 PCR Nasal Parainfluen 4 PCR Nasal RSV (PCR) Nasal B.pertussis DNA PCR Nasal C.pneumoniae (PCR) Andrez Human Metapneumo PCR Nasal M.pneumoniae (PCR) Nasal SARS-CoV-2 (PCR) Stl C. diff Tox B Gene Urine Opiates Screen Ur Buprenorphine Scrn Ur Oxycodone Screen Urine Methadone Screen Ur Barbiturates Screen Ur Tricyclics Screen Ur Phencyclidine Scrn Ur Amphetamine Screen U Methamphetamines Scrn U Benzodiazepines Scrn Urine Cocaine Screen U Cannabinoids Screen Ur Drug Screen Comment Ethyl Alcohol < 10.0 04/05/23 04/05/23 04/05/23 06:30 06:30 06:30 WBC RBC Hgb Hct MCV MCH MCHC RDW Plt Count MPV Neut # (Auto) Lymph # (Auto) [place] # (Auto) Eos # (Auto) Baso # (Auto) Absolute Nucleated RBC Total Counted Band Neuts % (Manual) Reactive Lymphs % (Man) Abnorm Lymph % (Manual) Metamyelocytes % Myelocytes % Nucleated RBC % Neutrophils # (Manual) Lymphocytes # (Manual) Monocytes # (Manual) Eosinophils # (Manual) Basophils # (Manual) Differential Comment Manual Slide Review Platelet Estimate Platelet Morphology RBC Morph Micro Appear Sodium Potassium Chloride Carbon Dioxide Anion Gap BUN Creatinine Estimated GFR (MDRD) Glucose POC Whole Bld Glucose Lactic Acid 4.7 H* Calcium Magnesium 1.1 L Total Bilirubin AST ALT Alkaline Phosphatase B-Natriuretic Peptide 1221 H Total Protein Albumin Globulin Albumin/Globulin Ratio Lipase Urine Color Urine Clarity Urine pH Ur Specific [place] Urine Protein Urine Glucose (UA) Urine Ketones Urine Occult Blood Urine Nitrite Urine Bilirubin Urine Urobilinogen Ur Leukocyte Esterase Urine RBC Urine WBC Ur Squamous Epith Cells Urine Bacteria Ur Microscopic Review Urine Culture Comments Nasal Adenovirus (PCR) Nasal B. parapertussis DNA (PCR) Nasal Coronavir 229E PCR Nasal Coronavir HKU1 PCR Nasal Coronavir NL63 PCR Nasal Coronavir OC43 PCR Nasal Enterovir/Rhinovir PCR Nasal Influenza B PCR Nasal Influenza A PCR Nasal Parainfluen 1 PCR Nasal Parainfluen 2 PCR Nasal Parainfluen 3 PCR Nasal Parainfluen 4 PCR Nasal RSV (PCR) Nasal B.pertussis DNA PCR Nasal C.pneumoniae (PCR) Andrez Human Metapneumo PCR Nasal M.pneumoniae (PCR) Nasal SARS-CoV-2 (PCR) Stl C. diff Tox B Gene Urine Opiates Screen Ur Buprenorphine Scrn Ur Oxycodone Screen Urine Methadone Screen Ur Barbiturates Screen Ur Tricyclics Screen Ur Phencyclidine Scrn Ur Amphetamine Screen U Methamphetamines Scrn U Benzodiazepines Scrn Urine Cocaine Screen U Cannabinoids Screen Ur Drug Screen Comment Ethyl Alcohol 04/05/23 04/05/23 04/05/23 06:38 07:55 12:25 WBC RBC Hgb Hct MCV MCH MCHC RDW Plt Count MPV Neut # (Auto) Lymph # (Auto) [place] # (Auto) Eos # (Auto) Baso # (Auto) Absolute Nucleated RBC Total Counted Band Neuts % (Manual) Reactive Lymphs % (Man) Abnorm Lymph % (Manual) Metamyelocytes % Myelocytes % Nucleated RBC % Neutrophils # (Manual) Lymphocytes # (Manual) Monocytes # (Manual) Eosinophils # (Manual) Basophils # (Manual) Differential Comment Manual Slide Review Platelet Estimate Platelet Morphology RBC Morph Micro Appear Sodium Potassium Chloride Carbon Dioxide Anion Gap BUN Creatinine Estimated GFR (MDRD) Glucose POC Whole Bld Glucose Lactic Acid 3.3 H* Calcium Magnesium Total Bilirubin AST ALT Alkaline Phosphatase B-Natriuretic Peptide Total Protein Albumin Globulin Albumin/Globulin Ratio Lipase Urine Color Urine Clarity Urine pH Ur Specific [place] Urine Protein Urine Glucose (UA) Urine Ketones Urine Occult Blood Urine Nitrite Urine Bilirubin Urine Urobilinogen Ur Leukocyte Esterase Urine RBC Urine WBC Ur Squamous Epith Cells Urine Bacteria Ur Microscopic Review Urine Culture Comments Nasal Adenovirus (PCR) NOT DETECTED Nasal B. parapertussis DNA (PCR) NOT DETECTED Nasal Coronavir 229E PCR NOT DETECTED Nasal Coronavir HKU1 PCR NOT DETECTED Nasal Coronavir NL63 PCR NOT DETECTED Nasal Coronavir OC43 PCR NOT DETECTED Nasal Enterovir/Rhinovir PCR NOT DETECTED Nasal Influenza B PCR NOT DETECTED Nasal Influenza A PCR NOT DETECTED Nasal Parainfluen 1 PCR NOT DETECTED Nasal Parainfluen 2 PCR NOT DETECTED Nasal Parainfluen 3 PCR NOT DETECTED Nasal Parainfluen 4 PCR NOT DETECTED Nasal RSV (PCR) NOT DETECTED Nasal B.pertussis DNA PCR NOT DETECTED Nasal C.pneumoniae (PCR) NOT DETECTED Andrez Human Metapneumo PCR NOT DETECTED Nasal M.pneumoniae (PCR) NOT DETECTED Nasal SARS-CoV-2 (PCR) DETECTED A Stl C. diff Tox B Gene POSITIVE A* Urine Opiates Screen Ur Buprenorphine Scrn Ur Oxycodone Screen Urine Methadone Screen Ur Barbiturates Screen Ur Tricyclics Screen Ur Phencyclidine Scrn Ur Amphetamine Screen U Methamphetamines Scrn U Benzodiazepines Scrn Urine Cocaine Screen U Cannabinoids Screen Ur Drug Screen Comment Ethyl Alcohol 04/05/23 04/05/23 04/05/23 14:30 16:31 16:31 WBC 8.2 RBC 2.63 L Hgb 7.8 L Hct 24.2 L MCV 92.0 MCH 29.7 MCHC 32.2 RDW 14.6 Plt Count 200 MPV 8.5 Neut # (Auto) Not Reportable Lymph # (Auto) Not Reportable [place] # (Auto) Not Reportable Eos # (Auto) Not Reportable Baso # (Auto) Not Reportable Absolute Nucleated RBC Not Reportable Total Counted 100 Band Neuts % (Manual) 14 H Reactive Lymphs % (Man) Abnorm Lymph % (Manual) 0 Metamyelocytes % Myelocytes % Nucleated RBC % Not Reportable Neutrophils # (Manual) 6.6 Lymphocytes # (Manual) 0.7 L Monocytes # (Manual) 0.8 Eosinophils # (Manual) 0.0 Basophils # (Manual) 0.0 Differential Comment MANUAL DIFFERENTIAL Manual Slide Review Platelet Estimate NORMAL (130-450,000) Platelet Morphology NORMAL APPEARANCE RBC Morph Micro Appear NORMAL APPEARANCE Sodium 131 L Potassium 3.6 Chloride 97 L Carbon Dioxide 19 L Anion Gap 15.0 H BUN 109 H* Creatinine 4.4 H Estimated GFR (MDRD) 14 L Glucose 77 POC Whole Bld Glucose Lactic Acid Calcium 8.2 L Magnesium 1.4 L Total Bilirubin AST ALT Alkaline Phosphatase B-Natriuretic Peptide Total Protein Albumin Globulin Albumin/Globulin Ratio Lipase Urine Color YELLOW Urine Clarity CLEAR Urine pH 5.5 Ur Specific [place] 1.020 Urine Protein >=300 H Urine Glucose (UA) 100 H Urine Ketones NEGATIVE Urine Occult Blood NEGATIVE Urine Nitrite NEGATIVE Urine Bilirubin NEGATIVE Urine Urobilinogen 0.2 (NORMAL) Ur Leukocyte Esterase NEGATIVE Urine RBC 0-5 Urine WBC 0-3 Ur Squamous Epith Cells NONE SEEN Urine Bacteria None Seen Ur Microscopic Review INDICATED Urine Culture Comments NOT INDICATED Nasal Adenovirus (PCR) Nasal B. parapertussis DNA (PCR) Nasal Coronavir 229E PCR Nasal Coronavir HKU1 PCR Nasal Coronavir NL63 PCR Nasal Coronavir OC43 PCR Nasal Enterovir/Rhinovir PCR Nasal Influenza B PCR Nasal Influenza A PCR Nasal Parainfluen 1 PCR Nasal Parainfluen 2 PCR Nasal Parainfluen 3 PCR Nasal Parainfluen 4 PCR Nasal RSV (PCR) Nasal B.pertussis DNA PCR Nasal C.pneumoniae (PCR) Andrez Human Metapneumo PCR Nasal M.pneumoniae (PCR) Nasal SARS-CoV-2 (PCR) Stl C. diff Tox B Gene Urine Opiates Screen NEGATIVE Ur Buprenorphine Scrn NEGATIVE Ur Oxycodone Screen NEGATIVE Urine Methadone Screen NEGATIVE Ur Barbiturates Screen NEGATIVE Ur Tricyclics Screen NEGATIVE Ur Phencyclidine Scrn NEGATIVE Ur Amphetamine Screen NEGATIVE U Methamphetamines Scrn NEGATIVE U Benzodiazepines Scrn NEGATIVE Urine Cocaine Screen NEGATIVE U Cannabinoids Screen NEGATIVE Ur Drug Screen Comment CUTOFF CONC BELOW: Ethyl Alcohol 04/05/23 16:31 WBC RBC Hgb Hct MCV MCH MCHC RDW Plt Count MPV Neut # (Auto) Lymph # (Auto) [place] # (Auto) Eos # (Auto) Baso # (Auto) Absolute Nucleated RBC Total Counted Band Neuts % (Manual) Reactive Lymphs % (Man) Abnorm Lymph % (Manual) Metamyelocytes % Myelocytes % Nucleated RBC % Neutrophils # (Manual) Lymphocytes # (Manual) Monocytes # (Manual) Eosinophils # (Manual) Basophils # (Manual) Differential Comment Manual Slide Review Platelet Estimate Platelet Morphology RBC Morph Micro Appear Sodium Potassium Chloride Carbon Dioxide Anion Gap BUN Creatinine Estimated GFR (MDRD) Glucose POC Whole Bld Glucose Lactic Acid Calcium Magnesium Total Bilirubin AST ALT Alkaline Phosphatase B-Natriuretic Peptide 2437 H Total Protein Albumin Globulin Albumin/Globulin Ratio Lipase Urine Color Urine Clarity Urine pH Ur Specific [place] Urine Protein Urine Glucose (UA) Urine Ketones Urine Occult Blood Urine Nitrite Urine Bilirubin Urine Urobilinogen Ur Leukocyte Esterase Urine RBC Urine WBC Ur Squamous Epith Cells Urine Bacteria Ur Microscopic Review Urine Culture Comments Nasal Adenovirus (PCR) Nasal B. parapertussis DNA (PCR) Nasal Coronavir 229E PCR Nasal Coronavir HKU1 PCR Nasal Coronavir NL63 PCR Nasal Coronavir OC43 PCR Nasal Enterovir/Rhinovir PCR Nasal Influenza B PCR Nasal Influenza A PCR Nasal Parainfluen 1 PCR Nasal Parainfluen 2 PCR Nasal Parainfluen 3 PCR Nasal Parainfluen 4 PCR Nasal RSV (PCR) Nasal B.pertussis DNA PCR Nasal C.pneumoniae (PCR) Andrez Human Metapneumo PCR Nasal M.pneumoniae (PCR) Nasal SARS-CoV-2 (PCR) Stl C. diff Tox B Gene Urine Opiates Screen Ur Buprenorphine Scrn Ur Oxycodone Screen Urine Methadone Screen Ur Barbiturates Screen Ur Tricyclics Screen Ur Phencyclidine Scrn Ur Amphetamine Screen U Methamphetamines Scrn U Benzodiazepines Scrn Urine Cocaine Screen U Cannabinoids Screen Ur Drug Screen Comment Ethyl Alcohol - Rads (name of study) cxr Relevant Findings:: Prelim report reviewed, See rad report PD Medical Decision Making - ED course Complexity details: reviewed old records, reviewed results, re-evaluated patient, considered differential, d/w patient, d/w family ED course: Records from inpatient stay at [facility] requested, received via fax and reviewed by me. These records indicate inpatient stay from 03/08/23-03/13/23 with diuresis for hypervolemia, severe mitral regurgitation, RLE DVT (for which he was started on Eliquis), worsening CKD. I have ordered 1 liter NS IV bolus, 0.4mg IV narcan. No concerning findings on EKG. Patient's blood pressure is 60s SBP on arrival but was slowly improving with IV fluids. Blood tests, CXR results are pending at end of my shift and thus care of patient is turned over to oncoming ED physician (Dr. Person). Departure - Departure Disposition: 02 Transfer Acute Care Hosp Clinical Impression: Hypoxia, Pneumonia due to COVID-19 virus, CHF (congestive heart failure), Cardi omyopathy, Sepsis, Acute on chronic renal insufficiency, C. difficile diarrhea Condition: Serious Forms: PCP List
[2023-04-05] MEDS ORDERED: SODIUM CHLORIDE 0.9% 1,000 ML IV STA (06:00)
[2023-04-05] MEDS ORDERED: NALOXONE 0.4 MG/ML VIAL IVP STA (06:00)
[2023-04-05 06:58] LABS: BASOPHILS % (AUTO) 0.6 %; EOSINOPHILS % (AUTO) 0.4 %; HCT - HEMATOCRIT 24.6 % (42.0-52.0); HGB - HEMOGLOBIN 7.7 g/dL (14.0-18.0); LYMPHOCYTES % (AUTO) 6.9 %; MEAN CORPUSCULAR HEMOGLOBIN 29.6 pg (27.0-31.0); MEAN CORPUSCULAR HGB CONC 31.3 g/dL (32.0-36.0); MEAN CORPUSCULAR VOLUME 94.6 fL (80.0-94.0); MEAN PLATELET VOLUME 9.2 fL (7.4-11.4); MONOCYTES % (AUTO) 5.1 %; NEUTROPHILS % (AUTO) 85.1 %; PLT - PLATELET COUNT 159 10^3/uL (130-450); RED CELL DISTRIBUTION WIDTH 14.5 % (12.0-15.0); WHITE BLOOD COUNT 7.3 x10^3/uL (4.8-10.8)
[2023-04-05 07:00] LABS: SLIDE REVIEW? Indicated
[2023-04-05 07:06] LABS: ALBUMIN 2.3 g/dL (3.2-5.5); ETOH - ETHANOL < 10.0 mg/dL
[2023-04-05 07:10] LABS: LIPASE < 10 U/L (11-82)
[2023-04-05 07:20] LABS: ALBUMIN/GLOBULIN RATIO 0.6 (1.0-2.2); ALKALINE PHOSPHATASE 175 IU/L (42-121); ALT ALANINE AMINOTRANSFERASE 16 IU/L (10-60); AST ASPARTATE AMINOTRANSFERASE 30 IU/L (10-42); BILIRUBIN,TOTAL 0.5 mg/dL (0.2-1.0); BUN - BLOOD UREA NITROGEN 109 mg/dL (6-20); CALCIUM 8.3 mg/dL (8.5-10.3); CARBON DIOXIDE - CO2 20 mmol/L (21-32); CHLORIDE 97 mmol/L (101-111); CREATININE 4.4 mg/dL (0.6-1.3); GFR - MDRD 14 (>89); GLUCOSE 93 mg/dL (74-104); POTASSIUM 3.5 mmol/L (3.5-4.5); SODIUM 132 mmol/L (135-145); TOTAL PROTEIN 6.3 g/dL (6.4-8.9)
[2023-04-05 07:47] LABS: ABNORMAL LYMPHS % (MANUAL) 0 %
[2023-04-05 07:51] LABS: BAND NEUTROPHILS % (MANUAL) 24 %; LYMPHOCYTES # (MANUAL) 1.1 10^3/uL (1.5-3.5); LYMPHOCYTES % (MANUAL) 13 %; METAMYELOCYTES % (MANUAL) 2 %; MONOCYTES # (MANUAL) 0.3 10^3/uL (0.0-1.0); MYELOCYTES % (MANUAL) 2 %; NEUTROPHILS # (MANUAL) 5.6 10^3/uL (1.5-6.6); REACTIVE LYMPHS % (MANUAL) 2 %
[2023-04-05 07:52] LABS: DIFFERENTIAL COMMENT MANUAL DIFFERENTIAL
--- NOTE | 2023-04-05 08:01 | XRAY Report ---
PROCEDURE: Chest 1 View X-Ray INDICATIONS: hypotensive, AMS TECHNIQUE: One view of the chest was acquired. COMPARISON: Chest x-ray 12/10/2018. FINDINGS: Surgical changes and devices: None. Lungs and pleura: No pleural effusions or pneumothorax. Diffuse bilateral airspace opacities. Mediastinum: Mediastinal contours appear normal. Heart size is normal. Bones and chest wall: No suspicious bony lesions. Overlying soft tissues appear unremarkable. IMPRESSION: Diffuse bilateral airspace opacities which may represent pneumonia or infection, recommend clinical c orrelation. Findings are concordant with preliminary interpretation provided by [facility]. Reviewed by: Stiven Carroll MD on 04/05/2023 8:00 AM [facility] Approved by: Stiven Carroll MD on 04/05/2023 8:00 AM PST Station ID: [id number]
[2023-04-05] MEDS: NOREPINEPHRINE/0.9 % NS 8 MG/250 ML BAG IV SCH (08:12)
[2023-04-05] MEDS ORDERED: MAGNESIUM SULFATE 2 GRAM 2 GM/50 ML BAG IV ONE (08:15)
[2023-04-05] MEDS ORDERED: FUROSEMIDE 20 MG/2 ML VIAL IVP STA (08:15)
[2023-04-05] MEDS ORDERED: levoFLOXacin 750 MG/150 ML 750 MG/150 ML BAG IV STA (08:16)
[2023-04-05] MEDS ORDERED: VANCOMYCIN 125 MG CAPSULE PO STA ×2 (09:00→10:45)
[2023-04-05 09:06] LABS: CORONAVIRUS 229E-RESP PCR NOT DETECTED; CORONAVIRUS HKU1-RESP PCR NOT DETECTED; CORONAVIRUS NL63-RESP PCR NOT DETECTED; CORONAVIRUS OC43-RESP PCR NOT DETECTED
--- NOTE | 2023-04-05 09:10 | ANESTHESIA PROCEDURE NOTE ---
Anesth Central Line Template - Central Line Central Line Preparation: Consent Obtained (mom), Time out completed, Ultrasound used, Sterile prep and drape Central line location: Right IJ Central line type: Triple lumen Central line catheter tip site resides: Superior vena cava (SVC) Central line aftercare: Chlorhexidine disc placed, Secured, Placement confirmed, No pneumothorax, No complications, Bundle checklist complete, Other Other Info/Details: secured at 18cm with bio disc and line securement brackets. Caps easily aspirate and flush x3. Tegaderm.
[2023-04-05 09:12] LABS: B. PARAPERTUSSIS- RESP PCR PAN NOT DETECTED; B. PERTUSSIS- RESP PCR PANEL NOT DETECTED; C. PNEUMONIAE- RESP PCR PANEL NOT DETECTED; HUMAN METAPNEUMOVIRUS NOT DETECTED; INFLUENZA A- RESP PCR PANEL NOT DETECTED; INFLUENZA B - RESP PCR PANEL NOT DETECTED; M. PNEUMONIAE- RESP PCR PANEL NOT DETECTED; PARAINFLUENZA VIRUS 1 NOT DETECTED; PARAINFLUENZA VIRUS 2 NOT DETECTED; PARAINFLUENZA VIRUS 3 NOT DETECTED; PARAINFLUENZA VIRUS 4 NOT DETECTED; RHINOVIRUS/ENTEROVIRUS NOT DETECTED; RSV- RESP PCR PANEL NOT DETECTED; SARS-CoV-2 -RESP PCR PANEL DETECTED
--- NOTE | 2023-04-05 09:31 | XRAY Report ---
PROCEDURE: Chest for Line Placement INDICATIONS: new R IJ CVL TECHNIQUE: One view of the chest was acquired. COMPARISON: Chest x-ray 04/05/2023 FINDINGS: Surgical changes and devices: Right central venous catheter with tip in the superior vena cava/cavoa trial junction. Lungs and pleura: No pleural effusions or pneumothorax. Redemonstration of diffuse patchy bilateral airspace opacities.. Mediastinum: Mediastinal contours appear normal. Heart size is normal. Bones and chest wall: No suspicious bony lesions. Overlying soft tissues appear unremarkable. IMPRESSION: 1.A central venous catheter with tip in the SVC/cavoatrial junction. 2.Redemonstration of diffuse patchy bilateral airspace opacities. Reviewed by: Stiven Carroll MD on 04/05/2023 9:30 AM PST Approved by: Stiven Carroll MD on 04/05/2023 9:30 AM PST Station ID: [id number]
[2023-04-05] MEDS ORDERED: FUROSEMIDE 40 MG/4 ML VIAL IVP STA ×4 (14:25→21:45)
[2023-04-05 14:41] LABS: BILIRUBIN,URINE NEGATIVE (NEGATIVE); GLUCOSE, URINE (UA) 100 mg/dL (NEGATIVE); KETONES,URINE (UA) NEGATIVE (NEGATIVE); LEUKOCYTE ESTERASE, URINE NEGATIVE (NEGATIVE); NITRITE,URINE NEGATIVE (NEGATIVE); OCCULT BLOOD,URINE NEGATIVE (NEGATIVE); PH,URINE 5.5 PH (5.0-7.5); PROTEIN,URINE >=300 mg/dL (NEGATIVE); UROBILINOGEN,URINE 0.2 (NORMAL) E.U./dL (NORMAL)
[2023-04-05 14:55] LABS: AMPHETAMINE SCREEN,URINE NEGATIVE (NEGATIVE); BARBITURATE SCREEN,UR NEGATIVE (NEGATIVE); BENZODIAZEPINES SCREEN, URINE NEGATIVE (NEGATIVE); BUPRENORPHINE SCREEN, URINE NEGATIVE (NEGATIVE); CLARITY,URINE CLEAR (CLEAR); COCAINE SCREEN URINE NEGATIVE (NEGATIVE); METHADONE SCREEN, URINE NEGATIVE (NEGATIVE); METHAMPHETAMINES SCREEN, URINE NEGATIVE (NEGATIVE); OPIATE SCREEN, URINE NEGATIVE (NEGATIVE); OXYCODONE SCREEN, URINE NEGATIVE (NEGATIVE); THC CANNABINOID SCREEN, URINE NEGATIVE (NEGATIVE); TRICYCLIC ANTIDEPRESSANT,URINE NEGATIVE (NEGATIVE)
[2023-04-05 15:14] LABS: BACTERIA,URINE None Seen /HPF (None Seen); RBC,URINE 0-5 /HPF (0-5); SQUAMOUS EPITHELIAL CELL,UR NONE SEEN (<= Few); WBC,URINE 0-3 /HPF (0-3)
[2023-04-05] MEDS ORDERED: ACETAMINOPHEN 500 MG TABLET PO PRN (15:36)
[2023-04-05] MEDS ORDERED: ONDANSETRON 4 MG/2 ML VIAL IVP PRN (15:36)
[2023-04-05] MEDS ORDERED: REMDESIVIR 200 MG in SODIUM CHLORIDE 0.9% 250 ML IV ONE (16:00)
[2023-04-05] MEDS: PANTOPRAZOLE 40 MG VIAL IVP SCH (16:09)
[2023-04-05 16:39] LABS: BASOPHILS % (AUTO) 0.9 %; HCT - HEMATOCRIT 24.2 % (42.0-52.0); HGB - HEMOGLOBIN 7.8 g/dL (14.0-18.0); LYMPHOCYTES % (AUTO) 4.8 %; MEAN CORPUSCULAR HEMOGLOBIN 29.7 pg (27.0-31.0); MEAN CORPUSCULAR HGB CONC 32.2 g/dL (32.0-36.0); MEAN PLATELET VOLUME 8.5 fL (7.4-11.4); MONOCYTES % (AUTO) 4.2 %; NEUTROPHILS % (AUTO) 89.5 %; PLT - PLATELET COUNT 200 10^3/uL (130-450); RED BLOOD COUNT 2.63 10^6/uL (4.70-6.10); RED CELL DISTRIBUTION WIDTH 14.6 % (12.0-15.0); WHITE BLOOD COUNT 8.2 x10^3/uL (4.8-10.8)
[2023-04-05 16:41] LABS: ABNORMAL LYMPHS % (MANUAL) 0 %
[2023-04-05 16:55] LABS: MAGNESIUM 1.4 mg/dL (1.7-2.3)
[2023-04-05 16:57] LABS: CALCIUM 8.2 mg/dL (8.5-10.3); CREATININE 4.4 mg/dL (0.6-1.3); POTASSIUM 3.6 mmol/L (3.5-4.5)
[2023-04-05] MEDS ORDERED: ALBUTEROL NEB 2.5 MG/3 ML INH SCH (17:00)
[2023-04-05 17:01] LABS: BAND NEUTROPHILS % (MANUAL) 14 %; DIFFERENTIAL COMMENT MANUAL DIFFERENTIAL; LYMPHOCYTES # (MANUAL) 0.7 10^3/uL (1.5-3.5); LYMPHOCYTES % (MANUAL) 9 %; MONOCYTES # (MANUAL) 0.8 10^3/uL (0.0-1.0); NEUTROPHILS # (MANUAL) 6.6 10^3/uL (1.5-6.6); PLATELET ESTIMATE, MANUAL NORMAL (130-450,000) (NORMAL); PLATELET MORPHOLOGY NORMAL APPEARANCE (NORMAL); RBC MORPHOLOGY (MULTIPLE) NORMAL APPEARANCE (NORMAL)
[2023-04-05] MEDS: VANCOMYCIN 125 MG CAPSULE PO SCH ×2 (17:25→20:14)
[2023-04-05] MEDS ORDERED: DEXTROSE 5%-0.45% NACL 1,000 ML IV STA (17:51)
[2023-04-05] MEDS: lamoTRIgine 100 MG TABLET PO SCH (20:13)
[2023-04-05] MEDS: APIXABAN 5 MG TABLET PO SCH (20:14)
[2023-04-05] MEDS: ALBUTEROL 1 PUFF INH SCH (20:15)
--- NOTE | 2023-04-05 21:28 | ED Physician Documentation ---
ED Addendum - Addendum Addendum: 04/05/23 21:28 No changes during my shift, patient continues to be boarded in the emergency department awaiting transfer. Patient signed out to the oncoming emergency department physician.
[2023-04-06] MEDS: NOREPINEPHRINE/0.9 % NS 8 MG/250 ML BAG IV SCH ×2 (00:42→17:42)
[2023-04-06 07:32] LABS: BASOPHILS % (AUTO) 0.8 %; HCT - HEMATOCRIT 21.6 % (42.0-52.0); HGB - HEMOGLOBIN 7.1 g/dL (14.0-18.0); LYMPHOCYTES % (AUTO) 3.2 %; MEAN CORPUSCULAR HGB CONC 32.9 g/dL (32.0-36.0); MEAN CORPUSCULAR VOLUME 91.1 fL (80.0-94.0); MEAN PLATELET VOLUME 8.6 fL (7.4-11.4); MONOCYTES % (AUTO) 4.8 %; NEUTROPHILS % (AUTO) 90.4 %; PLT - PLATELET COUNT 184 10^3/uL (130-450); RED BLOOD COUNT 2.37 10^6/uL (4.70-6.10); RED CELL DISTRIBUTION WIDTH 14.6 % (12.0-15.0); WHITE BLOOD COUNT 10.5 x10^3/uL (4.8-10.8)
[2023-04-06 07:35] LABS: SLIDE REVIEW? Indicated
[2023-04-06 07:57] LABS: ABNORMAL LYMPHS % (MANUAL) 0 %
[2023-04-06 07:59] LABS: BAND NEUTROPHILS % (MANUAL) 16 %; LYMPHOCYTES # (MANUAL) 1.1 10^3/uL (1.5-3.5); LYMPHOCYTES % (MANUAL) 10 %; MONOCYTES # (MANUAL) 0.6 10^3/uL (0.0-1.0); NEUTROPHILS # (MANUAL) 8.8 10^3/uL (1.5-6.6)
[2023-04-06 08:00] LABS: DIFFERENTIAL COMMENT MANUAL DIFFERENTIAL; PLATELET ESTIMATE, MANUAL NORMAL (130-450,000) (NORMAL); RBC MORPHOLOGY (MULTIPLE) 2+ ANISOCYTOSIS (NORMAL)
[2023-04-06 08:09] LABS: CALCIUM 7.8 mg/dL (8.5-10.3); CREATININE 4.4 mg/dL (0.6-1.3); POTASSIUM 3.4 mmol/L (3.5-4.5)
[2023-04-06] MEDS ORDERED: CALCIUM GLUC 1,000MG/50ML-NACL 1,000 MG/50 ML BAG IV STA (08:30)
[2023-04-06] MEDS ORDERED: LACTATED RINGERS 1,000 ML IV STA (08:30)
[2023-04-06] MEDS ORDERED: ESCITALOPRAM 10 MG TABLET PO SCH (09:00)
[2023-04-06] MEDS ORDERED: SPIRONOLACTONE 25 MG TABLET PO SCH (09:00)
--- NOTE | 2023-04-06 09:02 | XRAY Report ---
PROCEDURE: Chest 1 View X-Ray INDICATIONS: pneumonia TECHNIQUE: One view of the chest was acquired. COMPARISON: None. FINDINGS: Surgical changes and devices: Right IJ central venous catheter tip projects over the cavoatrial junc tion. Lungs and pleura: Worsening bibasilar airspace opacities. Mediastinum: Mediastinal contours appear normal. Heart size is normal. Bones and chest wall: No suspicious bony lesions. Overlying soft tissues appear unremarkable. IMPRESSION: Worsening bibasilar airspace opacities, either multifocal pneumonia or aspiration pneumonia. Reviewed by: Bruce Hernandez MD on 04/06/2023 9:00 AM [facility] Approved by: Bruce Hernandez MD on 04/06/2023 9:00 AM [facility] Station ID: [id number]
[2023-04-06] MEDS: ALBUTEROL 1 PUFF INH SCH ×4 (09:05→20:12)
[2023-04-06] MEDS ORDERED: MAGNESIUM SULFATE 2 GRAM 2 GM/50 ML BAG IV ONE ×2 (09:11→12:00)
[2023-04-06] MEDS ORDERED: THIAMINE INJ 100 MG in SODIUM CHLORIDE 0.9% 50 ML IV STA (09:12)
[2023-04-06] MEDS: APIXABAN 5 MG TABLET PO SCH ×2 (09:45→21:31)
[2023-04-06] MEDS: PANTOPRAZOLE 40 MG VIAL IVP SCH (09:45)
[2023-04-06] MEDS: lamoTRIgine 100 MG TABLET PO SCH ×2 (09:46→21:31)
[2023-04-06] MEDS: VANCOMYCIN 125 MG CAPSULE PO SCH ×4 (09:46→21:32)
[2023-04-06] MEDS ORDERED: REMDESIVIR 100 MG in SODIUM CHLORIDE 0.9% 100ML 100 ML IV SCH (13:00)
--- NOTE | 2023-04-06 14:40 | ED Physician Documentation ---
ED Addendum - Addendum Addendum: 04/06/23 14:36 The patient was doing well when I met with him on early shift this morning. He was breathing comfortably. His lungs were sounding fairly clear actually with minimal expiratory wheezing. Symmetry was good. His oxygenation was in the mid 90s on a simple facemask at 7 L. He found this more comfortable the nasal cannula. He is continuing on IV antibiotics as well as oral vancomycin. He had a blood culture show up as 1 out of 2 positive for gram-positive cocci, presumed contaminant. He is not having fevers. His diarrhea has decreased. Last checked on room air he was still in the 85% saturation so for now we will maintain him on supplemental oxygen. His blood pressure through the night was 120s to 130s systolic. He is only on 4 mg of norepinephrine. The nurse will try him off of this drip and see how he does. Morning labs still showed a creatinine of 4.4 though he has not really received IV fluids. Concern had been for needing diuresing which he has done with IV Lasix. I added a small amount of IV fluids for maintenance certainly and we will recheck his labs this afternoon. Subsequent update after lunchtime, he has now been off the norepinephrine for 2 to 3 hours and maintains a blood pressure 112 systolic. He does seem to be improving. I did talk with Dr. Schmidt at morning rounds at 11:00 this morning to see if the patient may be appropriate for our facility now that he is not showing worsening renal failure etc. Dr. Schmidt still felt he was complex for our facility. The patient maintains on a wait list at [facility] for transfer. I plan to recheck labs late afternoon. If he is showing signs of improving and improved renal function, disposition may be able to switch to our facility but at this point we are still looking at transfer.
[2023-04-06] MEDS: MAGNESIUM OXIDE 400 MG TABLET PO SCH ×2 (15:50→21:31)
[2023-04-06] MEDS: CALCIUM CARBONATE CHEW 500 MG TABLET PO SCH ×2 (15:50→21:31)
[2023-04-06] MEDS ORDERED: CALCIUM CARBONATE CHEW 500 MG TABLET PO SCH (16:00)
[2023-04-06 22:07] LABS: BASOPHILS % (AUTO) 0.8 %; LYMPHOCYTES % (AUTO) 3.8 %; MEAN CORPUSCULAR HEMOGLOBIN 29.4 pg (27.0-31.0); MEAN CORPUSCULAR HGB CONC 32.8 g/dL (32.0-36.0); MEAN CORPUSCULAR VOLUME 89.6 fL (80.0-94.0); MEAN PLATELET VOLUME 8.8 fL (7.4-11.4); MONOCYTES % (AUTO) 4.1 %; NEUTROPHILS % (AUTO) 88.8 %; PLT - PLATELET COUNT 161 10^3/uL (130-450); RED BLOOD COUNT 2.11 10^6/uL (4.70-6.10); RED CELL DISTRIBUTION WIDTH 14.6 % (12.0-15.0); WHITE BLOOD COUNT 7.6 x10^3/uL (4.8-10.8)
[2023-04-06 22:11] LABS: HCT - HEMATOCRIT 18.9 % (42.0-52.0); HGB - HEMOGLOBIN 6.2 g/dL (14.0-18.0)
[2023-04-06 22:13] LABS: ABNORMAL LYMPHS % (MANUAL) 0 %
[2023-04-06 22:19] LABS: MAGNESIUM 1.6 mg/dL (1.7-2.3)
--- NOTE | 2023-04-06 22:24 | ED Physician Documentation ---
ED Addendum - Addendum Addendum: 04/06/23 22:24 Patient's repeat hemoglobin came back at 6.2. Therefore a unit of blood was ordered. Other labs are still pending at the time of shift change. Patient signed out to Dr. Carrizales. Patient is still boarding awaiting placement for his C. difficile, COVID and other medical issues.
[2023-04-06 22:28] LABS: BAND NEUTROPHILS % (MANUAL) 3 %; LYMPHOCYTES # (MANUAL) 0.4 10^3/uL (1.5-3.5); LYMPHOCYTES % (MANUAL) 5 %; MONOCYTES # (MANUAL) 0.2 10^3/uL (0.0-1.0); PLATELET ESTIMATE, MANUAL NORMAL (130-450,000) (NORMAL); PLATELET MORPHOLOGY NORMAL APPEARANCE (NORMAL); RBC MORPHOLOGY (MULTIPLE) NORMAL APPEARANCE (NORMAL)
[2023-04-06 22:29] LABS: DIFFERENTIAL COMMENT MANUAL DIFFERENTIAL
[2023-04-06 23:01] LABS: CALCIUM 8.1 mg/dL (8.5-10.3); CREATININE 4.4 mg/dL (0.6-1.3); POTASSIUM 3.4 mmol/L (3.5-4.5)
[2023-04-07] MEDS ORDERED: ZINC OXIDE 20% OINT 30 GM TUBE TOP STA (02:43)
[2023-04-07] MEDS: CALCIUM CARBONATE CHEW 500 MG TABLET PO SCH (05:58)
[2023-04-07] MEDS: MAGNESIUM OXIDE 400 MG TABLET PO SCH (05:58)
[2023-04-07 07:31] LABS: BASOPHILS # (AUTO) 0.1 10^3/uL (0.0-0.1); BASOPHILS % (AUTO) 0.9 %; HCT - HEMATOCRIT 22.2 % (42.0-52.0); HGB - HEMOGLOBIN 7.4 g/dL (14.0-18.0); LYMPHOCYTES # (AUTO) 0.3 10^3/uL (1.5-3.5); LYMPHOCYTES % (AUTO) 3.5 %; MEAN CORPUSCULAR HEMOGLOBIN 29.6 pg (27.0-31.0); MEAN CORPUSCULAR HGB CONC 33.3 g/dL (32.0-36.0); MEAN CORPUSCULAR VOLUME 88.8 fL (80.0-94.0); MEAN PLATELET VOLUME 9.3 fL (7.4-11.4); MONOCYTES # (AUTO) 0.3 10^3/uL (0.0-1.0); MONOCYTES % (AUTO) 2.6 %; NEUTROPHILS # (AUTO) 8.6 10^3/uL (1.5-6.6); NEUTROPHILS % (AUTO) 91.1 %; PLT - PLATELET COUNT 202 10^3/uL (130-450); WHITE BLOOD COUNT 9.5 x10^3/uL (4.8-10.8)
[2023-04-07 07:36] LABS: SLIDE REVIEW? Indicated
[2023-04-07 07:40] LABS: MAGNESIUM 1.6 mg/dL (1.7-2.3)
[2023-04-07] MEDS: ALBUTEROL 1 PUFF INH SCH (07:50)
[2023-04-07 07:51] LABS: CALCIUM 8.2 mg/dL (8.5-10.3); CREATININE 4.5 mg/dL (0.6-1.3); POTASSIUM 3.4 mmol/L (3.5-4.5)
[2023-04-07 07:53] LABS: RBC MORPHOLOGY (MULTIPLE) 3+ ANISOCYTOSIS (NORMAL)
[2023-04-07 08:30] VITALS: BP 125/68; O2SAT 91
[2023-04-07] MEDS ORDERED: levoFLOXacin 750 MG/150 ML 750 MG/150 ML BAG IV SCH (09:00)
--- NOTE | 2023-04-08 09:19 | ED Physician Documentation ---
ED Addendum - Addendum Addendum: 04/08/23 09:17 Please see my initial note for complete H+P. Patient has been held in [facility] ED for 48 hours pending bed availability at an appropriate facility when I was contacted by Dr. Zhao at [facility] who accepts transfer of patient to his facility. At end of my shift patient is awaiting transport.
== END 2023-04-07 08:50 | disposition short-term general hospital (02) ==
LOC: ED 05:57
DX: U07.1 COVID-19 (principal); J12.82 Pneumonia due to coronavirus disease 2019; R09.02 Hypoxemia; I50.9 Heart failure, unspecified; I42.9 Cardiomyopathy, unspecified; A41.9 Sepsis, unspecified organism; E11.22 Type 2 diabetes mellitus with diabetic chronic kidney disease; N18.9 Chronic kidney disease, unspecified; A04.72 Enterocolitis due to Clostridium difficile, not specified as recurrent; I34.0 Nonrheumatic mitral (valve) insufficiency; F17.200 Nicotine dependence, unspecified, uncomplicated; Z86.718 Personal history of other venous thrombosis and embolism; Z79.01 Long term (current) use of anticoagulants; Z11.52 Encounter for screening for COVID-19; Z79.82 Long term (current) use of aspirin; Z79.899 Other long term (current) drug therapy; Z79.84 Long term (current) use of oral hypoglycemic drugs
CPT/HCPCS: 36415; 51702; 80048; 80053; 80306; 80320; 81001; 81003; 82272; 83605; 83690; 83735; 83880; 85025; 86850; 86900; 86901; 86920; 87040; 87077; 87086; 87150; 87181; 87493; 87633; 93005; 94640; 99285

== ENCOUNTER 2023-04-07 09:01 | Outpatient (CLI) | payer MEDICAID | END 2023-04-07 09:02 | disposition short-term general hospital (02) | LOC: EMS 09:01 | PROVIDERS: ATTEND Emergency Medicine | DX: U07.1 COVID-19 (principal); B96.89 Other specified bacterial agents as the cause of diseases classified elsewhere; N17.9 Acute kidney failure, unspecified; J18.9 Pneumonia, unspecified organism; I50.9 Heart failure, unspecified | CPT/HCPCS: A0425; A0426 ==

== ENCOUNTER 2023-07-01 08:58 | Outpatient (CLI) | payer MEDICAID ==
[2023-07-01 09:07] LABS: BASOPHILS # (AUTO) 0.1 10^3/uL (0.0-0.1); BASOPHILS % (AUTO) 0.6 %; EOSINOPHILS # (AUTO) 0.2 10^3/uL (0.0-0.7); EOSINOPHILS % (AUTO) 2.1 %; LYMPHOCYTES # (AUTO) 1.5 10^3/uL (1.5-3.5); LYMPHOCYTES % (AUTO) 14.8 %; MEAN CORPUSCULAR HEMOGLOBIN 29.7 pg (27.0-31.0); MEAN CORPUSCULAR HGB CONC 29.7 g/dL (32.0-36.0); MEAN PLATELET VOLUME 8.3 fL (7.4-11.4); MONOCYTES # (AUTO) 0.7 10^3/uL (0.0-1.0); MONOCYTES % (AUTO) 7.4 %; NEUTROPHILS # (AUTO) 7.4 10^3/uL (1.5-6.6); NEUTROPHILS % (AUTO) 74.3 %; PLT - PLATELET COUNT 265 10^3/uL (130-450); RED BLOOD COUNT 1.92 10^6/uL (4.70-6.10); RED CELL DISTRIBUTION WIDTH 20.1 % (12.0-15.0); WHITE BLOOD COUNT 9.9 x10^3/uL (4.8-10.8)
[2023-07-01 09:18] LABS: ALBUMIN 1.9 g/dL (3.2-5.5); ALBUMIN/GLOBULIN RATIO 0.4 (1.0-2.2); BILIRUBIN,TOTAL 0.4 mg/dL (0.2-1.0); CALCIUM 8.5 mg/dL (8.5-10.3); CREATININE 1.9 mg/dL (0.6-1.3); POTASSIUM 4.4 mmol/L (3.5-4.5); TOTAL PROTEIN 6.8 g/dL (6.4-8.9)
[2023-07-01 09:35] LABS: SLIDE REVIEW? Indicated
[2023-07-01 09:42] LABS: RBC MORPHOLOGY (MULTIPLE) 4+ ANISOCYTOSIS (NORMAL)
[2023-07-01 10:09] LABS: HGB - HEMOGLOBIN 5.7 g/dL (14.0-18.0)
[2023-07-01 10:10] LABS: HCT - HEMATOCRIT 19.2 % (42.0-52.0)
== END 2023-07-01 08:59 | disposition home or self-care (01) ==
LOC: LAB.R 08:58
PROVIDERS: ATTEND Registered Nurse
DX: I50.22 Chronic systolic (congestive) heart failure (principal); N18.6 End stage renal disease; D63.1 Anemia in chronic kidney disease; E78.5 Hyperlipidemia, unspecified
CPT/HCPCS: 80053; 85025

== ENCOUNTER 2023-07-01 10:38 | Outpatient (CLI) | payer MEDICAID | END 2023-07-01 23:59 | disposition short-term general hospital (02) | LOC: EMS 10:38 | DX: R53.1 Weakness (principal) | CPT/HCPCS: A0425; A0429; A0999 ==

== ENCOUNTER 2023-07-31 08:00 | Outpatient (CLI) | payer MEDICAID | END 2023-07-31 23:59 | disposition home or self-care (01) | LOC: LAB.R 08:00 | PROVIDERS: ATTEND Registered Nurse | DX: A04.72 Enterocolitis due to Clostridium difficile, not specified as recurrent (principal) | CPT/HCPCS: 87493 ==

== ENCOUNTER 2023-08-06 13:14 | Outpatient (CLI) | payer MEDICAID ==
[2023-08-06 13:23] LABS: BASOPHILS # (AUTO) 0.1 10^3/uL (0.0-0.1); BASOPHILS % (AUTO) 0.8 %; EOSINOPHILS % (AUTO) 0.7 %; HCT - HEMATOCRIT 24.9 % (42.0-52.0); HGB - HEMOGLOBIN 7.4 g/dL (14.0-18.0); LYMPHOCYTES # (AUTO) 1.2 10^3/uL (1.5-3.5); LYMPHOCYTES % (AUTO) 20.1 %; MEAN CORPUSCULAR HEMOGLOBIN 30.5 pg (27.0-31.0); MEAN CORPUSCULAR HGB CONC 29.7 g/dL (32.0-36.0); MEAN CORPUSCULAR VOLUME 102.5 fL (80.0-94.0); MEAN PLATELET VOLUME 8.5 fL (7.4-11.4); MONOCYTES # (AUTO) 0.6 10^3/uL (0.0-1.0); MONOCYTES % (AUTO) 9.5 %; NEUTROPHILS % (AUTO) 68.4 %; PLT - PLATELET COUNT 125 10^3/uL (130-450); RED BLOOD COUNT 2.43 10^6/uL (4.70-6.10); RED CELL DISTRIBUTION WIDTH 15.8 % (12.0-15.0); WHITE BLOOD COUNT 5.9 x10^3/uL (4.8-10.8)
[2023-08-06 13:37] LABS: ALBUMIN 2.1 g/dL (3.2-5.5); ALBUMIN/GLOBULIN RATIO 0.4 (1.0-2.2); BILIRUBIN,TOTAL 0.4 mg/dL (0.2-1.0); CREATININE 1.7 mg/dL (0.6-1.3); POTASSIUM 5.2 mmol/L (3.5-4.5); TOTAL PROTEIN 6.8 g/dL (6.4-8.9)
[2023-08-06 13:53] LABS: ESTIMATED AVERAGE GLUCOSE 82 mg/dL (70-100); HEMOGLOBIN A1c% 4.5 % (4.27-6.07)
== END 2023-08-06 13:15 | disposition home or self-care (01) ==
LOC: LAB.R 13:14
PROVIDERS: ATTEND Registered Nurse
DX: E11.21 Type 2 diabetes mellitus with diabetic nephropathy (principal); G40.909 Epilepsy, unspecified, not intractable, without status epilepticus; E11.22 Type 2 diabetes mellitus with diabetic chronic kidney disease; N18.6 End stage renal disease; D63.1 Anemia in chronic kidney disease
CPT/HCPCS: 80053; 80175; 83036; 85025

== ENCOUNTER 2023-08-12 08:00 | Outpatient (CLI) | payer MEDICAID ==
[2023-08-12 18:22] LABS: ALBUMIN 2.2 g/dL (3.2-5.5); ALBUMIN/GLOBULIN RATIO 0.4 (1.0-2.2); BILIRUBIN,TOTAL 0.4 mg/dL (0.2-1.0); CALCIUM 8.5 mg/dL (8.5-10.3); CREATININE 0.9 mg/dL (0.6-1.3); POTASSIUM 3.9 mmol/L (3.5-4.5); TOTAL PROTEIN 7.2 g/dL (6.4-8.9)
== END 2023-08-12 23:59 | disposition home or self-care (01) ==
LOC: LAB.R 08:00
DX: E87.1 Hypo-osmolality and hyponatremia (principal)
CPT/HCPCS: 80053

== ENCOUNTER 2023-08-23 08:00 | Outpatient (CLI) | payer MEDICAID ==
[2023-08-23 17:25] LABS: BASOPHILS # (AUTO) 0.1 10^3/uL (0.0-0.1); BASOPHILS % (AUTO) 0.7 %; EOSINOPHILS # (AUTO) 0.1 10^3/uL (0.0-0.7); EOSINOPHILS % (AUTO) 1.4 %; HCT - HEMATOCRIT 25.2 % (42.0-52.0); HGB - HEMOGLOBIN 7.6 g/dL (14.0-18.0); LYMPHOCYTES % (AUTO) 12.9 %; MEAN CORPUSCULAR HEMOGLOBIN 32.3 pg (27.0-31.0); MEAN CORPUSCULAR HGB CONC 30.2 g/dL (32.0-36.0); MEAN CORPUSCULAR VOLUME 107.2 fL (80.0-94.0); MEAN PLATELET VOLUME 8.6 fL (7.4-11.4); MONOCYTES # (AUTO) 0.8 10^3/uL (0.0-1.0); MONOCYTES % (AUTO) 9.8 %; NEUTROPHILS # (AUTO) 5.7 10^3/uL (1.5-6.6); NEUTROPHILS % (AUTO) 74.9 %; PLT - PLATELET COUNT 130 10^3/uL (130-450); RED BLOOD COUNT 2.35 10^6/uL (4.70-6.10); RED CELL DISTRIBUTION WIDTH 15.2 % (12.0-15.0); WHITE BLOOD COUNT 7.6 x10^3/uL (4.8-10.8)
[2023-08-23 17:34] LABS: ALBUMIN 2.4 g/dL (3.2-5.5); ALBUMIN/GLOBULIN RATIO 0.5 (1.0-2.2); BILIRUBIN,TOTAL 0.5 mg/dL (0.2-1.0); CALCIUM 9.1 mg/dL (8.5-10.3); POTASSIUM 4.4 mmol/L (3.5-4.5); TOTAL PROTEIN 7.6 g/dL (6.4-8.9)
== END 2023-08-23 23:59 | disposition home or self-care (01) ==
LOC: LAB.R 08:00
DX: N18.6 End stage renal disease (principal); D63.1 Anemia in chronic kidney disease
CPT/HCPCS: 80053; 85025

== ENCOUNTER 2023-08-23 18:32 | Outpatient (CLI) | payer MEDICAID | END 2023-08-23 18:33 | disposition short-term general hospital (02) | LOC: EMS 18:32 | DX: E10.649 Type 1 diabetes mellitus with hypoglycemia without coma (principal); Z99.2 Dependence on renal dialysis; Z99.81 Dependence on supplemental oxygen | CPT/HCPCS: A0425; A0427; A0999 ==

== ENCOUNTER 2023-08-28 02:14 | Outpatient (CLI) | payer MEDICAID | END 2023-08-28 23:59 | disposition E | LOC: EMS 02:14 | DX: I46.9 Cardiac arrest, cause unspecified (principal) | CPT/HCPCS: A0426; A0998 ==